=== PATIENT | female | born 1995 | race Caucasian/White ===

== ENCOUNTER 2024-04-25 13:45 | Outpatient (RCR) | payer BC, SELFPAY ==
--- NOTE | 2023-11-30 17:16 | PT.OIE ---
Current Diagnoses Constipation, unspecified (11/30/23) Pain in unspecified knee (11/30/23) Muscle weakness (generalized) (11/30/23) Myalgia, other site (11/30/23) Other female genital prolapse (11/30/23) Visit Care Team Role Provider Type Mckayla San PA-C Family Provider Non-Staff Primary Care Provider Specialty: Medical Address: [address], [facility] [address], [place], [address] Email: BLANQUITA Cabrera Attending Provider Non-Staff Referring Provider Specialty: Nursing Address: [facility], [address], [place], [address] Email: Physical Therapy Initial Evaluation PT-OP-A Visit Information Start: 11/22/23 19:42 Freq: Status: Active Protocol: Document 11/30/23 12:34 LRN (Rec: 11/30/23 16:40 LRN [id number]) Out-Patient Physical Therapy Visit Information Visit Information Visit Type Initial Evaluation Visit Start Time 14:35 Visit Stop Time 15:24 Visit Number 1 Evaluation Information Evaluation Date 11/30/23 Precautions Precautions Neuropathy, depression, Chronic back & neck pain (10 yrs), headaches, PT-OP-B Current Condition Start: 11/22/23 19:42 Freq: Status: Active Protocol: Document 11/30/23 12:34 LRN (Rec: 11/30/23 16:40 LRN [id number]) Current Condition History of Current Condition Onset Date 08/17/23 Current Complaints Pain across abdomen; jnaene knee pain (with max bending) around the joint. History of Current Condition Pt is 15 wks post- C- section , referred for abdominal pain, instability, and janene knee pain. Pt reports abdominal pain is at the C- section scar and above but not as high as the belly button level (3 fingers down). R side of scar and abdomen is more painful, initially it was the L side. Pt is having trouble with functional activities with her children due to the abdominal and janene knee pain. Pt denies urinary symptoms. Has constipation, but has had it for a long time . Taking stool softners and laxitives to have BM 3 days. Before stools every 2-3 days without medication. Developmental History Developmental History 4 pregnancies, last brth C- section but others were vaginal. Mild tear with first of twins. children 4.5 x 2, age 3, and 5 wks. Treatment Goals Patient/Caregiver Goals Pt goal is: Cut down on abodominal pain No abominal pain with kids sitting on lap. Becoming more functional, hug kids w/o pain. Not feeling protective of stomach. Be able to sit on knees to get down on the floor. Personal Factors Other Personal Factors That May Effect Pt has 4 children (4-1/2 twins Therapy/Recovery , 3 yo & 5 wk old), lives in [place]; therefore can make only certain timeframes for appointments. PT-OP-C Subjective Start: 11/22/23 19:42 Freq: Status: Active Protocol: Document 11/30/23 12:34 LRN (Rec: 11/30/23 16:40 LRN [id number]) Patient Questionnaires Lower Extremity Functional Scale LEFS Score 51 LEFS Impairment 20 to 39% Impaired (Score 48- 62) Pelvic Pain and Urgency/Frequency Patient Symptom Scale Pelvic Pain Score 16 OP-PT Pain Assessment Pain Assessment Grid Paper Pain Assessment Grid Completed Yes Location Janene knees Pain Location Details Janene knees Intensity 6 Scale Used Numeric (0 - 10) Description Aching,Sharp Description- Other Sitting on knees or max knee flexion pain only. Frequency Occasional Other Pain Aggravating Factors Max knee flexion or sitting on knees. Lower abdomen Pain Location Details Below belly button across abdomen Intensity 4 Scale Used Numeric (0 - 10) Description Sharp Frequency Frequent Pain Duration several times a day. Fades if not actively doing something. Other Pain Aggravating Factors Children hugging her has dull achy abdominal pain. Other Pain Alleviating Factors Essential oils: lavender, peppermint, doterra. IBP or Tylenol not helpful PT-OP-J Posture/Palpation/Skin Start: 11/22/23 19:42 Freq: Status: Active Protocol: Document 11/30/23 12:34 LRN (Rec: 11/30/23 16:40 LRN [id number]) Posture Evaluation Position Standing Head/C-Spine Posture Forward Head L-Spine Posture Increased Lordosis Pelvis Posture Anteriorly Tilted Palpation Assessment Location Knees Palpation Location Around knees - bilaterally Palpation Details No tenderness to palpation. abdomen Palpation Location Abdominal DR Palpation Details Abdominal contraction not strong enough to be palpable w /o reaching fwd w/arms on head lift. Umbilicus 3 above: closed ( just below Xiphoid Process. Umbilicus 2 above: 2 finger widths (FWs) Umbilicus 1 above: 2 finger widths (FWs) Umbilicus Umbilicus: 1 below: 2 FWs Umbilicus: 2 below: Pt not able to tolerate assessment due to pain Umbilicus: 3 below: Pt not able to tolerate assessment due to pain Umbilicus: 4 below: Just above scar PT-OP-K Range of Motion Start: 11/22/23 19:42 Freq: Status: Active Protocol: Document 11/30/23 12:34 LRN (Rec: 11/30/23 16:40 LRN [id number]) Lumbar Spine Range of Motion Lumbar Spine Active Degrees Testing Position Standing Flexion 58 Extension 5 Rotation Left 20 Rotation Right 20 Lateral Flexion Left 15 Lateral Flexion Right 15 Hip Goniometric Range of Motion Hip Right Passive Testing Position Supine Flexion w/Knee Flexed 115 Internal Rotation 35 External Rotation 55 Left Passive Flexion w/Knee Flexed 120 Internal Rotation 40 External Rotation 60 Knee Goniometric Range of Motion Knee Right Patient Position Supine Flexion Active (degrees) 140 Flexion Passive (degrees) 140 Left Patient Position Supine Flexion Active (degrees) 133 Flexion Passive (degrees) 140 PT-OP-L Special Tests Start: 11/22/23 19:42 Freq: Status: Active Protocol: Document 11/30/23 12:34 LRN (Rec: 11/30/23 16:40 LRN [id number]) Special Tests Knee Special Tests Posterior Draw Test Results - bilaterally Patellar Grind Test Test Results - bilaterally Joe Test Test Results - bilaterally Bounce Home Test Results - bilaterally Alba's Test Results - bilaterally Anterior Draw Test Results - bilaterally PT-OP-M Strength Start: 11/22/23 19:42 Freq: Status: Active Protocol: Document 11/30/23 12:34 LRN (Rec: 11/30/23 16:40 LRN [id number]) Trunk Strength Trunk Manual Muscle Testing Flexion 2+ Poor+ Core Stabilization Held assessment due to onset of abdominal pain with sup<> sit transfers. Hip Strength Hip Manual Muscle Testing Right External Rotation 5 Normal Internal Rotation 5 Normal Left External Rotation 5 Normal Internal Rotation 5 Normal PT-OP-Q Treatments Start: 11/22/23 19:42 Freq: Status: Active Protocol: Document 11/30/23 12:34 LRN (Rec: 11/30/23 16:40 LRN [id number]) Therapeutic Exercises Supine Exercises TA tightening Supine Exercise Name TA tightening Reps/Minutes 5' Comments Much cuing for pt to identify TA tightening at centerline and at ASIS Therapeutic Activity Therapeutic Activity Sup<>sit Name Sup<>Sit transfer Reps/Minutes 3' Comments Verbal education/discusssion in log roll technique for sup< >sit transfer. Manual Therapy Treatment Soft Tissue Mobilization Scar mob Body Location scar mob Mobilization Type Myofascial Release Intensity/Depth Superficial Body Position Supine Comments Tighter on L side. Educated pt in self scar mob of scar. Self-Care/Home Management Treatment Education Patient Education Home Exercise Program Other Education Discussed results of evaluation, goals, and plan of care (POC). Pt agreeable to goals and POC. Discussed use of ice, LE elevation and knee wrap for edema mgmt and pain reduction to janene knees. Activities Self-Care/Home Management Activities Issued & reviewed HEP: TA tightening ex in supine and I/ S pt to do in all positions, especially in slidelie. PT-OP-T Assessment and Plan Start: 11/22/23 19:42 Freq: Status: Active Protocol: Document 11/30/23 12:34 LRN (Rec: 11/30/23 16:40 LRN [id number]) Physical Therapy Assessment Rehab Potential Rehabilitation Potential Excellent Evaluation Complexity Number of Personal Factors/Comorbidities 1-2 Number of Body Systems Impaired 4 or More Clinical Presentation at Evaluation Evolving Impairments Impairments Activity Tolerance,Edema, Functional Activities, Functional Mobility,Pain, Posture,ROM,Soft Tissue Mobility,Strength,Transfers Goals Five Impairment Constipation, BM's every 3-4 days with use of stool softners. Short Term Goal (STG) Pt will be educated in bowel care program and BM massage. STG Duration 1 month-12/28/23 [facility] Goal (LTG) Pt will be able to have BM daily or every other day. LTG Duration 5 months-05/02/24 Four Impairment Lacks normal janene knee flexion range. Impairment Painfree knee AROM flexion: 133 L, 140 R, Knee pain at PROM flex: 140 deg's bilaterally, pt not able to sit on heels when gettin up/ down off floor. Short Term Goal (STG) Pt educated in RICE technique. 11/30/23: Brief discussion on edema management for swelling in knees. STG Duration 2 wks-12/14/23 Shiftman Goal (LTG) Be able to tolerate max knee flex to sit on heels to get down onto the floor. LTG Duration 4 months-04/11/24 Three Impairment Abdominal weakness causing pain with activities Impairment Abdominal pain (5/10) limiting functional ability to take care of kids. Abdominal strength with head lift is 1/5. Short Term Goal (STG) Improve abdominal strength with pt able to perform a TA with a head lift. STG Duration 2 months-01/25/24 Shiftman Goal (LTG) Improve abdominal strength with pt able to be more functional, ex - hug kids w/o pain. LTG Duration 4 months-04/11/24 Two Impairment Abdominal pain (5/10) with pressure against stomach Short Term Goal (STG) Decrease abodominal pain to level no greater than 2.5/10 STG Duration 2 months-01/25/24 Shiftman Goal (LTG) No abdominal pain with kids sitting on lap. LTG Duration 3 months-03/14/24 One Impairment Pt lacks appropriate self care HEP Short Term Goal (STG) Pt education in transfers to protect her Diastasis Rectus ( DR) STG Duration 2 wks-12/14/23 [facility] Goal (LTG) Pt will be independent with a self care HEP of core/hip strengthening, hip and janene knee ROM exercises. 11/30/23: HEP: Sup, Sidelie TA tightening & I/S in standing. Pt educated in log roll transfer OOB. LTG Duration 5 months-05/02/24 progressed 11/30/23 Assessment Summary Assessment Pt is a 27 yo femalek 15 wks post- with abdominal pain from scar and core abdominal weakness. Janene knee knee pain is probably due to swelling at the knee as tests for patellar or internal derangement at the knees is negative. Lig tests are negative although MCL/LCL testing will be performed at the next visit. The pt was not having genital prolapse symptoms; therefore further assessment for prolapse will be at her next visit. The pt will benefit from skilled physical therapy with focus first on her abdominal pain, then on her knee pain, and if pt agreeable PF rehab as needed. Physical Therapy Plan Frequency and Duration Frequency of Treatment 1x/Week Duration of treatment (weeks) 22 Plan of Care Start Date 11/30/23 Plan of Care End Date 05/02/24 Therapeutic Interventions Therapeutic Interventions Balance Training,Gait Training ,Home Exercise Program,Joint Mobilizations,Manual Therapy, Neuromuscular Re-education, Self-Care/Home Management,Soft Tissue Mobilization,Taping, Therapeutic Activities, Therapeutic Exercises Modalities Cold Pack/Ice Massage,Electric Stimulation,Hot Packs, Ultrasound Next Visit Focus/Plan Next Note Type Treatment Note Next Visit Plan Next: Assess MCL/LCL knee ligs, strength of trunk/hip/ knee (if tolerated by abdominal pain), and PF assessed for genital prolapse. Education: RICE technique, DR protection education, Postural training, coordination of proper breaths with ADLs, transfers, body mechanics and exercise. Strengthening: Core/TA post- . Exer: trunk flex (R>L KTC), Hip stretches (R>L IR/ER) & core strengthening (TA/ro
--- NOTE | 2023-11-30 17:16 | PT.OPPOC ---
Physical, Occupational & Speech Therapy At [facility] Current Diagnoses Constipation, unspecified (11/30/23) Pain in unspecified knee (11/30/23) Muscle weakness (generalized) (11/30/23) Myalgia, other site (11/30/23) Other female genital prolapse (11/30/23) Visit Care Team Role Provider Type Mckayla San PA-C Family Provider Non-Staff Primary Care Provider Specialty: Medical Address: [address], [facility] [address], [place], [address] Email: BLANQUITA Cabrera Attending Provider Non-Staff Referring Provider Specialty: Nursing Address: [facility], [facility] [address], [place], [address] Email: Plan Of Care PT-OP-T Assessment and Plan Start: 11/22/23 19:42 Freq: Status: Active Protocol: Document 11/30/23 12:34 LRN (Rec: 11/30/23 16:40 LRN [id number]) Physical Therapy Assessment Rehab Potential Rehabilitation Potential Excellent Evaluation Complexity Number of Personal Factors/Comorbidities 1-2 Number of Body Systems Impaired 4 or More Clinical Presentation at Evaluation Evolving Impairments Impairments Activity Tolerance,Edema, Functional Activities, Functional Mobility,Pain, Posture,ROM,Soft Tissue Mobility,Strength,Transfers Goals Five Impairment Constipation, BM's every 3-4 days with use of stool softners. Short Term Goal (STG) Pt will be educated in bowel care program and BM massage. STG Duration 1 month-12/28/23 Rental Salesperson Goal (LTG) Pt will be able to have BM daily or every other day. LTG Duration 5 months-05/02/24 Four Impairment Lacks normal janene knee flexion range. Impairment Painfree knee AROM flexion: 133 L, 140 R, Knee pain at PROM flex: 140 deg's bilaterally, pt not able to sit on heels when gettin up/ down off floor. Short Term Goal (STG) Pt educated in RICE technique. 11/30/23: Brief discussion on edema management for swelling in knees. STG Duration 2 wks-12/14/23 Rental Salesperson Goal (LTG) Be able to tolerate max knee flex to sit on heels to get down onto the floor. LTG Duration 4 months-04/11/24 Three Impairment Abdominal weakness causing pain with activities Impairment Abdominal pain (5/10) limiting functional ability to take care of kids. Abdominal strength with head lift is 1/5. Short Term Goal (STG) Improve abdominal strength with pt able to perform a TA with a head lift. STG Duration 2 months-01/25/24 [facility] Goal (LTG) Improve abdominal strength with pt able to be more functional, ex - hug kids w/o pain. LTG Duration 4 months-04/11/24 Two Impairment Abdominal pain (5/10) with pressure against stomach Short Term Goal (STG) Decrease abodominal pain to level no greater than 2.5/10 STG Duration 2 months-01/25/24 Rental Salesperson Goal (LTG) No abdominal pain with kids sitting on lap. LTG Duration 3 months-03/14/24 One Impairment Pt lacks appropriate self care HEP Short Term Goal (STG) Pt education in transfers to protect her Diastasis Rectus ( DR) STG Duration 2 wks-12/14/23 Rental Salesperson Goal (LTG) Pt will be independent with a self care HEP of core/hip strengthening, hip and janene knee ROM exercises. 11/30/23: HEP: Sup, Sidelie TA tightening & I/S in standing. Pt educated in log roll transfer OOB. LTG Duration 5 months-05/02/24 progressed 11/30/23 Assessment Summary Assessment Pt is a 27 yo femalek 15 wks post- with abdominal pain from scar and core abdominal weakness. Janene knee knee pain is probably due to swelling at the knee as tests for patellar or internal derangement at the knees is negative. Lig tests are negative although MCL/LCL testing will be performed at the next visit. The pt was not having genital prolapse symptoms; therefore further assessment for prolapse will be at her next visit. The pt will benefit from skilled physical therapy with focus first on her abdominal pain, then on her knee pain, and if pt agreeable PF rehab as needed. Physical Therapy Plan Frequency and Duration Frequency of Treatment 1x/Week Duration of treatment (weeks) 22 Plan of Care Start Date 11/30/23 Plan of Care End Date 05/02/24 Therapeutic Interventions Therapeutic Interventions Balance Training,Gait Training ,Home Exercise Program,Joint Mobilizations,Manual Therapy, Neuromuscular Re-education, Self-Care/Home Management,Soft Tissue Mobilization,Taping, Therapeutic Activities, Therapeutic Exercises Modalities Cold Pack/Ice Massage,Electric Stimulation,Hot Packs, Ultrasound Next Visit Focus/Plan Next Note Type Treatment Note Next Visit Plan Next: Assess MCL/LCL knee ligs, strength of trunk/hip/ knee (if tolerated by abdominal pain), and PF assessed for genital prolapse. Education: RICE technique, DR protection education, Postural training, coordination of proper breaths with ADLs, transfers, body mechanics and exercise. Strengthening: Core/TA post- . Exer: trunk flex (R>L KTC), Hip stretches (R>L IR/ER) & core strengthening (TA/ro Plan of Care Dates Plan of Care Start Date 11/30/23 Plan of Care End Date 05/02/24 Electronically Signed by: Lyndsey Nails, PT 11/30/23 2341 If you are in agreement with this Plan of Care, please return a signed and dated copy. I have reviewed this Plan of Care and certify that the skilled therapy services above are required to meet the patient?s needs. Physician Signature Date Printed Name and Credentials Clinical Instructor Signature Printed Name and Credentials
--- NOTE | 2023-12-07 14:57 | PT-OP ANOTE ---
By phone, pt states she's had a headache today and forgot appt. Rreviewed DNS/CX policy regarding missed charge fee. Pt to call clinic if she wants to dispute. Pt reminded of next appt.
--- NOTE | 2023-12-14 15:35 | PT.OTN ---
Current Diagnoses Constipation, unspecified (12/14/23) Pain in unspecified knee (12/14/23) Muscle weakness (generalized) (12/14/23) Myalgia, other site (12/14/23) Other female genital prolapse (12/14/23) Physical Therapy Treatment Note PT-OP-A Visit Information Start: 11/22/23 19:42 Freq: Status: Active Protocol: Document 12/14/23 14:36 LRN (Rec: 12/14/23 15:33 LRN [id number]) Out-Patient Physical Therapy Visit Information Visit Information Visit Type Treatment Note Visit Start Time 14:36 Visit Stop Time 15:09 Visit Number 2 Evaluation Information Evaluation Date 11/30/23 Precautions Precautions Neuropathy, depression, Chronic back & neck pain (10 yrs), headaches, PT-OP-B Current Condition Start: 11/22/23 19:42 Freq: Status: Active Protocol: Document 11/30/23 12:34 LRN (Rec: 11/30/23 16:40 LRN [id number]) Current Condition History of Current Condition Onset Date 08/17/23 Current Complaints Pain across abdomen; janene knee pain (with max bending) around the joint. History of Current Condition Pt is 15 wks post- C- section , referred for abdominal pain, instability, and janene knee pain. Pt reports abdominal pain is at the C- section scar and above but not as high as the belly button level (3 fingers down). R side of scar and abdomen is more painful, initially it was the L side. Pt is having trouble with functional activities with her children due to the abdominal and janene knee pain. Pt denies urinary symptoms. Has constipation, but has had it for a long time . Taking stool softners and laxitives to have BM 3 days. Before stools every 2-3 days without medication. Developmental History Developmental History 4 pregnancies, last brth C- section but others were vaginal. Mild tear with first of twins. children 4.5 x 2, age 3, and 5 wks. Treatment Goals Patient/Caregiver Goals Pt goal is: Cut down on abodominal pain No abominal pain with kids sitting on lap. Becoming more functional, hug kids w/o pain. Not feeling protective of stomach. Be able to sit on knees to get down on the floor. Personal Factors Other Personal Factors That May Effect Pt has 4 children (4-1/2 twins Therapy/Recovery , 3 yo & 5 wk old), lives in [place]; therefore can make only certain timeframes for appointments. PT-OP-C Subjective Start: 11/22/23 19:42 Freq: Status: Active Protocol: Document 12/14/23 14:36 LRN (Rec: 12/14/23 15:33 LRN [id number]) OP-PT Subjective Patient Comments Patient Comments Knees are doing better, jian can sit down on her knees unless going too quickly. Feels minor improvement with feeling stomach muscles. PT-OP-J Posture/Palpation/Skin Start: 11/22/23 19:42 Freq: Status: Active Protocol: Document 11/30/23 12:34 LRN (Rec: 11/30/23 16:40 LRN [id number]) Posture Evaluation Position Standing Head/C-Spine Posture Forward Head L-Spine Posture Increased Lordosis Pelvis Posture Anteriorly Tilted Palpation Assessment Location Knees Palpation Location Around knees - bilaterally Palpation Details No tenderness to palpation. abdomen Palpation Location Abdominal DR Palpation Details Abdominal contraction not strong enough to be palpable w /o reaching fwd w/arms on head lift. Umbilicus 3 above: closed ( just below Xiphoid Process. Umbilicus 2 above: 2 finger widths (FWs) Umbilicus 1 above: 2 finger widths (FWs) Umbilicus Umbilicus: 1 below: 2 FWs Umbilicus: 2 below: Pt not able to tolerate assessment due to pain Umbilicus: 3 below: Pt not able to tolerate assessment due to pain Umbilicus: 4 below: Just above scar PT-OP-K Range of Motion Start: 11/22/23 19:42 Freq: Status: Active Protocol: Document 11/30/23 12:34 LRN (Rec: 11/30/23 16:40 LRN [id number]) Lumbar Spine Range of Motion Lumbar Spine Active Degrees Testing Position Standing Flexion 58 Extension 5 Rotation Left 20 Rotation Right 20 Lateral Flexion Left 15 Lateral Flexion Right 15 Hip Goniometric Range of Motion Hip Right Passive Testing Position Supine Flexion w/Knee Flexed 115 Internal Rotation 35 External Rotation 55 Left Passive Flexion w/Knee Flexed 120 Internal Rotation 40 External Rotation 60 Knee Goniometric Range of Motion Knee Right Patient Position Supine Flexion Active (degrees) 140 Flexion Passive (degrees) 140 Left Patient Position Supine Flexion Active (degrees) 133 Flexion Passive (degrees) 140 PT-OP-L Special Tests Start: 11/22/23 19:42 Freq: Status: Active Protocol: Document 11/30/23 12:34 LRN (Rec: 11/30/23 16:40 LRN [id number]) Special Tests Knee Special Tests Posterior Draw Test Results - bilaterally Patellar Grind Test Test Results - bilaterally Joe Test Test Results - bilaterally Bounce Home Test Results - bilaterally Alba's Test Results - bilaterally Anterior Draw Test Results - bilaterally PT-OP-M Strength Start: 11/22/23 19:42 Freq: Status: Active Protocol: Document 11/30/23 12:34 LRN (Rec: 11/30/23 16:40 LRN [id number]) Trunk Strength Trunk Manual Muscle Testing Flexion 2+ Poor+ Core Stabilization Held assessment due to onset of abdominal pain with sup<> sit transfers. Hip Strength Hip Manual Muscle Testing Right External Rotation 5 Normal Internal Rotation 5 Normal Left External Rotation 5 Normal Internal Rotation 5 Normal PT-OP-Q Treatments Start: 11/22/23 19:42 Freq: Status: Active Protocol: Document 12/14/23 14:36 LRN (Rec: 12/14/23 15:33 LRN [id number]) Therapeutic Exercises Sidelying Exercises TA tightening Sidelying Exercise Name TA tightening Side bilateral Reps/Minutes 10 SH x 6' Comments Pt fatigued after 4-5 reps. Other Exercises TA w/transfers Other Exercise Name TA tightening with transfers: stand<>sit<>sidelie. Equipment Used Towel for bracing abdomen Reps/Minutes 5' Comments VCs needed to Tighten TA before transfering. Manual Therapy Treatment Soft Tissue Mobilization Back Body Location Lower T/S and L/S paraspinals Mobilization Type Myofascial Release,Strumming Intensity/Depth Moderate to superficial. Body Position Prone Comments Prone on pillow. PT-OP-T Assessment and Plan Start: 11/22/23 19:42 Freq: Status: Active Protocol: Document 12/14/23 14:36 LRN (Rec: 12/14/23 15:33 LRN [id number]) Physical Therapy Assessment Goals Five Impairment Constipation, BM's every 3-4 days with use of stool softners. Short Term Goal (STG) Pt will be educated in bowel care program and BM massage. STG Duration 1 month-12/28/23 Jail Goal (LTG) Pt will be able to have BM daily or every other day. LTG Duration 5 months-05/02/24 Four Impairment Lacks normal janene knee flexion range. Impairment Painfree knee AROM flexion: 133 L, 140 R, Knee pain at PROM flex: 140 deg's bilaterally, pt not able to sit on heels when gettin up/ down off floor. Short Term Goal (STG) Pt educated in RICE technique. 11/30/23: Brief discussion on edema management for swelling in knees. STG Duration 2 wks-12/14/23 As400 Consultant Goal (LTG) Be able to tolerate max knee flex to sit on heels to get down onto the floor. LTG Duration 4 months-04/11/24 Three Impairment Abdominal weakness causing pain with activities Impairment Abdominal pain (5/10) limiting functional ability to take care of kids. Abdominal strength with head lift is 1/5. Short Term Goal (STG) Improve abdominal strength with pt able to perform a TA with a head lift. STG Duration 2 months-01/25/24 As400 Consultant Goal (LTG) Improve abdominal strength with pt able to be more functional, ex - hug kids w/o pain. LTG Duration 4 months-04/11/24 Two Impairment Abdominal pain (5/10) with pressure against stomach Short Term Goal (STG) Decrease abodominal pain to level no greater than 2.5/10 STG Duration 2 months-01/25/24 Jail Goal (LTG) No abdominal pain with kids sitting on lap. LTG Duration 3 months-03/14/24 One Impairment Pt lacks appropriate self care HEP Short Term Goal (STG) Pt education in transfers to protect her Diastasis Rectus ( DR). 12/14/23: Pt educated in use of towel for transfers to protech her DR. STG Duration 2 wks-12/14/23 (12/24/23: MET GOAL) Jail Goal (LTG) Pt will be independent with a self care HEP of core/hip strengthening, hip and janene knee ROM exercises. 11/30/23: HEP: Sup, Sidelie TA tightening & I/S in standing. Pt educated in log roll transfer OOB. LTG Duration 5 months-05/02/24 progressed 11/30/23 Assessment Summary Assessment Pt is a 27 yo female 16 wks post- with abdominal pain from scar and core abdominal weakness. She is very weak and fatigues in abdomen after 4-5 reps; therefore pt did not tolerate a full session of physical therapy. Pt is carrying baby in to clinic in car seat and is having back pain from low back to upperback. She is tender in the L anterior lower abdominal region with sit<> stnad transfers. Physical Therapy Plan Frequency and Duration Frequency of Treatment 1x/Week Duration of treatment (weeks) 22 Plan of Care Start Date 11/30/23 Plan of Care End Date 05/02/24 Next Visit Focus/Plan Next Note Type Treatment Note Next Visit Plan Next: Assess MCL/LCL knee ligs, strength of trunk/hip/ knee (if tolerated by abdominal pain), and PF assessed for genital prolapse. Education: RICE technique, bowel care program & BM massage (STG 5), Postural training, coordination of proper breaths with ADLs, transfers, body mechanics and exercise. Strengthening: Core/TA post- . Exer: trunk flex (R>L KTC), Hip stretches (R>L IR/ER) & core strengthening (TA/roll in /out program)
--- NOTE | 2023-12-21 15:54 | PT.OTN ---
Current Diagnoses Constipation, unspecified (12/21/23) Pain in unspecified knee (12/21/23) Muscle weakness (generalized) (12/21/23) Myalgia, other site (12/21/23) Other female genital prolapse (12/21/23) Physical Therapy Treatment Note PT-OP-A Visit Information Start: 11/22/23 19:42 Freq: Status: Active Protocol: Document 12/21/23 14:35 LRN (Rec: 12/21/23 15:50 LRN [id number]) Out-Patient Physical Therapy Visit Information Visit Information Visit Type Treatment Note Visit Start Time 14:35 Visit Stop Time 15:20 Visit Number 3 Evaluation Information Evaluation Date 11/30/23 Precautions Precautions Neuropathy, depression, Chronic back & neck pain (10 yrs), headaches (pt reports wgt - 160#) PT-OP-B Current Condition Start: 11/22/23 19:42 Freq: Status: Active Protocol: Document 11/30/23 12:34 LRN (Rec: 11/30/23 16:40 LRN [id number]) Current Condition History of Current Condition Onset Date 08/17/23 Current Complaints Pain across abdomen; janene knee pain (with max bending) around the joint. History of Current Condition Pt is 15 wks post- C- section , referred for abdominal pain, instability, and janene knee pain. Pt reports abdominal pain is at the C- section scar and above but not as high as the belly button level (3 fingers down). R side of scar and abdomen is more painful, initially it was the L side. Pt is having trouble with functional activities with her children due to the abdominal and janene knee pain. Pt denies urinary symptoms. Has constipation, but has had it for a long time . Taking stool softners and laxitives to have BM 3 days. Before stools every 2-3 days without medication. Developmental History Developmental History 4 pregnancies, last brth C- section but others were vaginal. Mild tear with first of twins. children 4.5 x 2, age 3, and 5 wks. Treatment Goals Patient/Caregiver Goals Pt goal is: Cut down on abodominal pain No abominal pain with kids sitting on lap. Becoming more functional, hug kids w/o pain. Not feeling protective of stomach. Be able to sit on knees to get down on the floor. Personal Factors Other Personal Factors That May Effect Pt has 4 children (4-1/2 twins Therapy/Recovery , 3 yo & 5 wk old), lives in [place]; therefore can make only certain timeframes for appointments. PT-OP-C Subjective Start: 11/22/23 19:42 Freq: Status: Active Protocol: Document 12/21/23 14:35 LRN (Rec: 12/21/23 15:50 LRN [id number]) OP-PT Subjective Patient Comments Patient Comments Doing PT for back via online ( [employer]). Thinks she can tighten her TA with only discomfort, not painful, bu pain in back after 10 reps due to fatigue. Feels she is 50% able to remember to tighten her TA with activities. Hard time after last visit due to increased back pain and difficult carrying car seat. Pain decreased from 6/10 to 5 /10 after treatment. OP-PT Pain Assessment Pain Assessment Grid Paper Pain Assessment Grid Completed Yes Location Posterior Neck Pain Location Details Posterior neck Intensity 7 Scale Used Numeric (0 - 10) Posterio trunk Pain Location Details posterior thoracic region Intensity 7 Scale Used Numeric (0 - 10) PT-OP-J Posture/Palpation/Skin Start: 11/22/23 19:42 Freq: Status: Active Protocol: Document 11/30/23 12:34 LRN (Rec: 11/30/23 16:40 LRN [id number]) Posture Evaluation Position Standing Head/C-Spine Posture Forward Head L-Spine Posture Increased Lordosis Pelvis Posture Anteriorly Tilted Palpation Assessment Location Knees Palpation Location Around knees - bilaterally Palpation Details No tenderness to palpation. abdomen Palpation Location Abdominal DR Palpation Details Abdominal contraction not strong enough to be palpable w /o reaching fwd w/arms on head lift. Umbilicus 3 above: closed ( just below Xiphoid Process. Umbilicus 2 above: 2 finger widths (FWs) Umbilicus 1 above: 2 finger widths (FWs) Umbilicus Umbilicus: 1 below: 2 FWs Umbilicus: 2 below: Pt not able to tolerate assessment due to pain Umbilicus: 3 below: Pt not able to tolerate assessment due to pain Umbilicus: 4 below: Just above scar PT-OP-K Range of Motion Start: 11/22/23 19:42 Freq: Status: Active Protocol: Document 11/30/23 12:34 LRN (Rec: 11/30/23 16:40 LRN [id number]) Lumbar Spine Range of Motion Lumbar Spine Active Degrees Testing Position Standing Flexion 58 Extension 5 Rotation Left 20 Rotation Right 20 Lateral Flexion Left 15 Lateral Flexion Right 15 Hip Goniometric Range of Motion Hip Right Passive Testing Position Supine Flexion w/Knee Flexed 115 Internal Rotation 35 External Rotation 55 Left Passive Flexion w/Knee Flexed 120 Internal Rotation 40 External Rotation 60 Knee Goniometric Range of Motion Knee Right Patient Position Supine Flexion Active (degrees) 140 Flexion Passive (degrees) 140 Left Patient Position Supine Flexion Active (degrees) 133 Flexion Passive (degrees) 140 PT-OP-L Special Tests Start: 11/22/23 19:42 Freq: Status: Active Protocol: Document 12/21/23 14:35 LRN (Rec: 12/21/23 15:52 LRN [id number]) Special Tests Knee Special Tests Varus- 25 Degrees Test Results negative bilaterally Valgus- 25 Degrees Test Results negative bilaterally PT-OP-M Strength Start: 11/22/23 19:42 Freq: Status: Active Protocol: Document 11/30/23 12:34 LRN (Rec: 11/30/23 16:40 LRN [id number]) Trunk Strength Trunk Manual Muscle Testing Flexion 2+ Poor+ Core Stabilization Held assessment due to onset of abdominal pain with sup<> sit transfers. Hip Strength Hip Manual Muscle Testing Right External Rotation 5 Normal Internal Rotation 5 Normal Left External Rotation 5 Normal Internal Rotation 5 Normal PT-OP-Q Treatments Start: 11/22/23 19:42 Freq: Status: Active Protocol: Document 12/21/23 14:35 LRN (Rec: 12/21/23 15:50 LRN [id number]) Therapeutic Exercises Sidelying Exercises TA tightening Sidelying Exercise Name TA tightening Side bilateral Reps/Minutes 15 SH R side; 10x L side/rest /5x more. Comments LBP at rep tolerance. Other Exercises TA w/transfers Other Exercise Name TA tightening with transfers: stand<>sit<>sidelie. Equipment Used Towel for bracing abdomen Reps/Minutes 5' Comments VCs needed to Tighten TA before transfering. Therapeutic Activity Therapeutic Activity Sidelie<>opp sidelie Name Sidelie<>opp sidelie Reps/Minutes 2' Comments Cuing to tighten TA and breathe through movement. Sup<>sit Name Sit>sup transfer Reps/Minutes 2' Comments Cuing for TA tight and not breath holding. Manual Therapy Treatment Soft Tissue Mobilization Bowel massage Body Location Bowel massage Mobilization Type Other Intensity/Depth Superficial to moderate. Body Position Supine Comments Training for pt to do self massage. Discussion of follow up of BM massage with warm fluid vs warm water. Self-Care/Home Management Treatment Education Patient Education Home Exercise Program Other Education Discussed and educated pt in specifics for completion of in use of Bladder Diary and I/S in tracking for 1 week. Discussed use of 2 different diaries for tracking of bladder for next 7 days. Educated pt in avg fluid intake for hydration (~80 oz max) Activities Self-Care/Home Management Activities Issued & reviewed HEP: Bowel massage and bowel program with recommendations in modifications appropriate for pt. Issued handouts for [place] Stool Chart, and bladder diary . PT-OP-T Assessment and Plan Start: 11/22/23 19:42 Freq: Status: Active Protocol: Document 12/21/23 14:35 LRN (Rec: 12/21/23 15:50 LRN [id number]) Physical Therapy Assessment Goals Five Impairment Constipation, BM's every 3-4 days with use of stool softners. Short Term Goal (STG) Pt will be educated in bowel care program and BM massage. STG Duration (12/21/23: MET GOAL) Sped Teacher Goal (LTG) Pt will be able to have BM daily or every other day. LTG Duration 5 months-05/02/24 Four Impairment Lacks normal janene knee flexion range. Impairment Painfree knee AROM flexion: 133 L, 140 R, Knee pain at PROM flex: 140 deg's bilaterally, pt not able to sit on heels when gettin up/ down off floor. Short Term Goal (STG) Pt educated in RICE technique. 11/30/23: Brief discussion on edema management for swelling in knees. STG Duration 2 wks-12/14/23 Sped Teacher Goal (LTG) Be able to tolerate max knee flex to sit on heels to get down onto the floor. LTG Duration 4 months-04/11/24 Three Impairment Abdominal weakness causing pain with activities Impairment Abdominal pain (5/10) limiting functional ability to take care of kids. Abdominal strength with head lift is 1/5. Short Term Goal (STG) Improve abdominal strength with pt able to perform a TA with a head lift. STG Duration 2 months-01/25/24 Sped Teacher Goal (LTG) Improve abdominal strength with pt able to be more functional, ex - hug kids w/o pain. LTG Duration 4 months-04/11/24 Two Impairment Abdominal pain (5/10) with pressure against stomach Short Term Goal (STG) Decrease abodominal pain to level no greater than 2.5/10 STG Duration 2 months-01/25/24 Sped Teacher Goal (LTG) No abdominal pain with kids sitting on lap. LTG Duration 3 months-03/14/24 One Impairment Pt lacks appropriate self care HEP Short Term Goal (STG) Pt education in transfers to protect her Diastasis Rectus ( DR). 12/14/23: Pt educated in use of towel for transfers to protech her DR. STG Duration 2 wks-12/14/23 (12/24/23: MET GOAL) Sped Teacher Goal (LTG) Pt will be independent with a self care HEP of core/hip strengthening, hip and janene knee ROM exercises. 11/30/23: HEP: Sup, Sidelie TA tightening & I/S in standing. Pt educated in log roll transfer OOB. LTG Duration 5 months-05/02/24 progressed 11/30/23 Assessment Summary Assessment Pt is a 27 yo female 16 wks post- with abdominal pain from scar and core abdominal weakness. Late entry of pt reported pain (on initial evaluation) posterior trunk 6-7/10 and posterior neck 6-7/10. Today, janene knee MCL/LCL ligs are intact. Pt still very weak in abdomen and fatigues quickly in abdominal muscles. She is receptive to information for management of constipation. Physical Therapy Plan Frequency and Duration Frequency of Treatment 1x/Week Duration of treatment (weeks) 22 Plan of Care Start Date 11/30/23 Plan of Care End Date 05/02/24 Next Visit Focus/Plan Next Note Type Treatment Note Next Visit Plan Next: Review DR protection with sheet/towel. Assess strength of trunk/hip/knee (if tolerated by abdominal pain), and PF assessed for genital prolapse. Next: Review bladder diary, assess response to BM massage and program. Education: RICE technique, Modalities for pain management , Postural training, coordination of proper breaths with ADLs, transfers, body mechanics and exercise. Strengthening: Core/TA post- . Exer: trunk flex (R>L KTC), Hip stretches (R>L IR/ER) & core strengthening (TA/roll in /out program)
--- NOTE | 2024-01-07 14:35 | PT.OTN ---
Current Diagnoses Constipation, unspecified (01/07/24) Pain in unspecified knee (01/07/24) Muscle weakness (generalized) (01/07/24) Myalgia, other site (01/07/24) Other female genital prolapse (01/07/24) Physical Therapy Treatment Note PT-OP-A Visit Information Start: 11/22/23 19:42 Freq: Status: Active Protocol: Document 01/07/24 13:45 LRN (Rec: 01/07/24 14:34 LRN [id number]) Out-Patient Physical Therapy Visit Information Visit Information Visit Type Treatment Note Visit Start Time 13:45 Visit Stop Time 14:29 Visit Number 4 Evaluation Information Evaluation Date 11/30/23 Precautions Precautions Neuropathy, depression, Chronic back & neck pain (10 yrs), headaches (pt reports wgt - 160#) PT-OP-B Current Condition Start: 11/22/23 19:42 Freq: Status: Active Protocol: Document 11/30/23 12:34 LRN (Rec: 11/30/23 16:40 LRN [id number]) Current Condition History of Current Condition Onset Date 08/17/23 Current Complaints Pain across abdomen; janene knee pain (with max bending) around the joint. History of Current Condition Pt is 15 wks post- C- section , referred for abdominal pain, instability, and janene knee pain. Pt reports abdominal pain is at the C- section scar and above but not as high as the belly button level (3 fingers down). R side of scar and abdomen is more painful, initially it was the L side. Pt is having trouble with functional activities with her children due to the abdominal and janene knee pain. Pt denies urinary symptoms. Has constipation, but has had it for a long time . Taking stool softners and laxitives to have BM 3 days. Before stools every 2-3 days without medication. Developmental History Developmental History 4 pregnancies, last brth C- section but others were vaginal. Mild tear with first of twins. children 4.5 x 2, age 3, and 5 wks. Treatment Goals Patient/Caregiver Goals Pt goal is: Cut down on abodominal pain No abominal pain with kids sitting on lap. Becoming more functional, hug kids w/o pain. Not feeling protective of stomach. Be able to sit on knees to get down on the floor. Personal Factors Other Personal Factors That May Effect Pt has 4 children (4-1/2 twins Therapy/Recovery , 3 yo & 5 wk old), lives in [place]; therefore can make only certain timeframes for appointments. PT-OP-C Subjective Start: 11/22/23 19:42 Freq: Status: Active Protocol: Document 01/07/24 13:45 LRN (Rec: 01/07/24 14:34 LRN [id number]) OP-PT Subjective Patient Comments Patient Comments No changes, having more intermittent pain along scar, thinks because she has not been protecting her core. States use of towel to protect her DR helps with the pain. Bowel movements daily. PT-OP-J Posture/Palpation/Skin Start: 11/22/23 19:42 Freq: Status: Active Protocol: Document 11/30/23 12:34 LRN (Rec: 11/30/23 16:40 LRN [id number]) Posture Evaluation Position Standing Head/C-Spine Posture Forward Head L-Spine Posture Increased Lordosis Pelvis Posture Anteriorly Tilted Palpation Assessment Location Knees Palpation Location Around knees - bilaterally Palpation Details No tenderness to palpation. abdomen Palpation Location Abdominal DR Palpation Details Abdominal contraction not strong enough to be palpable w /o reaching fwd w/arms on head lift. Umbilicus 3 above: closed ( just below Xiphoid Process. Umbilicus 2 above: 2 finger widths (FWs) Umbilicus 1 above: 2 finger widths (FWs) Umbilicus Umbilicus: 1 below: 2 FWs Umbilicus: 2 below: Pt not able to tolerate assessment due to pain Umbilicus: 3 below: Pt not able to tolerate assessment due to pain Umbilicus: 4 below: Just above scar PT-OP-K Range of Motion Start: 11/22/23 19:42 Freq: Status: Active Protocol: Document 11/30/23 12:34 LRN (Rec: 11/30/23 16:40 LRN [id number]) Lumbar Spine Range of Motion Lumbar Spine Active Degrees Testing Position Standing Flexion 58 Extension 5 Rotation Left 20 Rotation Right 20 Lateral Flexion Left 15 Lateral Flexion Right 15 Hip Goniometric Range of Motion Hip Right Passive Testing Position Supine Flexion w/Knee Flexed 115 Internal Rotation 35 External Rotation 55 Left Passive Flexion w/Knee Flexed 120 Internal Rotation 40 External Rotation 60 Knee Goniometric Range of Motion Knee Right Patient Position Supine Flexion Active (degrees) 140 Flexion Passive (degrees) 140 Left Patient Position Supine Flexion Active (degrees) 133 Flexion Passive (degrees) 140 PT-OP-L Special Tests Start: 11/22/23 19:42 Freq: Status: Active Protocol: Document 12/21/23 14:35 LRN (Rec: 12/21/23 15:52 LRN [id number]) Special Tests Knee Special Tests Varus- 25 Degrees Test Results negative bilaterally Valgus- 25 Degrees Test Results negative bilaterally PT-OP-M Strength Start: 11/22/23 19:42 Freq: Status: Active Protocol: Document 11/30/23 12:34 LRN (Rec: 11/30/23 16:40 LRN [id number]) Trunk Strength Trunk Manual Muscle Testing Flexion 2+ Poor+ Core Stabilization Held assessment due to onset of abdominal pain with sup<> sit transfers. Hip Strength Hip Manual Muscle Testing Right External Rotation 5 Normal Internal Rotation 5 Normal Left External Rotation 5 Normal Internal Rotation 5 Normal PT-OP-Q Treatments Start: 11/22/23 19:42 Freq: Status: Active Protocol: Document 01/07/24 13:45 LRN (Rec: 01/07/24 14:34 LRN [id number]) Therapeutic Exercises Supine Exercises Lateral Hip stretch Supine Exercise Name Lateral Hip stretch, R>L Side right Reps/Minutes 3' Comments Extra time to determine max tolerated hip IR stretch Supine Exercise Name Piriformis: KToppS, R>L Side right Reps/Minutes 3' Comments Extra time to determine max tolerated Fig 4 stretch Supine Exercise Name Fig 4 stretch, R>L Side bilateral Reps/Minutes 6' Comments Extra time to determine max tolerated Sidelying Exercises TA tightening Sidelying Exercise Name TA tightening Side bilateral Reps/Minutes 2 breath, 15x/2. Comments LBP at rep tolerance. Manual Therapy Treatment Taping Abdomen for DR awareness Body Location Abdomen Treatment Focus Facilitate Core stab/DR closure Type of Tape Kinesio Tape Skin Inspection Good Comments I/S pt in safe & proper removal of K-tape in 5 days. scar Body Location Lower abdomen at scar Treatment Focus Improve scar tissue mobility Type of Tape Kinesio Tape Skin Inspection Good Comments Scar sensitive. I/S pt in safe & proper removal of K-tape in 5 days. Self-Care/Home Management Treatment Education Patient Education Home Exercise Program Activities Self-Care/Home Management Activities Issued HEP: Hip ER (Fig4 stretch) and Hip IR ( Piriformis & Lateral hip) stretch. PT-OP-T Assessment and Plan Start: 11/22/23 19:42 Freq: Status: Active Protocol: Document 01/07/24 13:45 LRN (Rec: 01/07/24 14:34 LRN [id number]) Physical Therapy Assessment Goals Five Impairment Constipation, BM's every 3-4 days with use of stool softners. Short Term Goal (STG) Pt will be educated in bowel care program and BM massage. STG Duration (12/21/23: MET GOAL) Retail Property Manager Goal (LTG) Pt will be able to have BM daily or every other day. 01/07/24: Pt reports daily BM's. . LTG Duration 5 months-05/02/24 (01/07/24: MET GOAL) Four Impairment Lacks normal janene knee flexion range. Impairment Painfree knee AROM flexion: 133 L, 140 R, Knee pain at PROM flex: 140 deg's bilaterally, pt not able to sit on heels when gettin up/ down off floor. Short Term Goal (STG) Pt educated in RICE technique. 11/30/23: Brief discussion on edema management for swelling in knees. STG Duration 2 wks-12/14/23 Retail Property Manager Goal (LTG) Be able to tolerate max knee flex to sit on heels to get down onto the floor. LTG Duration 4 months-04/11/24 Three Impairment Abdominal weakness causing pain with activities Impairment Abdominal pain (5/10) limiting functional ability to take care of kids. Abdominal strength with head lift is 1/5. Short Term Goal (STG) Improve abdominal strength with pt able to perform a TA with a head lift. STG Duration 2 months-01/25/24 Snf Goal (LTG) Improve abdominal strength with pt able to be more functional, ex - hug kids w/o pain. LTG Duration 4 months-04/11/24 Two Impairment Abdominal pain (5/10) with pressure against stomach Short Term Goal (STG) Decrease abodominal pain to level no greater than 2.5/10 STG Duration 2 months-01/25/24 Snf Goal (LTG) No abdominal pain with kids sitting on lap. LTG Duration 3 months-03/14/24 One Impairment Pt lacks appropriate self care HEP Short Term Goal (STG) Pt education in transfers to protect her Diastasis Rectus ( DR). 12/14/23: Pt educated in use of towel for transfers to protech her DR. STG Duration 2 wks-12/14/23 (12/24/23: MET GOAL) Retail Property Manager Goal (LTG) Pt will be independent with a self care HEP of core/hip strengthening, hip and janene knee ROM exercises. 11/30/23: HEP: Sup, Sidelie TA tightening & I/S in standing. Pt educated in log roll transfer OOB. LTG Duration 5 months-05/02/24 progressed 11/30/23 Assessment Summary Assessment 27 yo female 16 wks post- with abdominal pain from scar and core abdominal weakness. Today shows good recall of use of towel for DR protection with transfer sit<>sup. Pt did not bring bladder diary due to now having daily BMs w/o doing bowel massage. Tender in the anterior lower abdominal region, L>R. + response to K- tape Physical Therapy Plan Frequency and Duration Frequency of Treatment 1x/Week Duration of treatment (weeks) 22 Plan of Care Start Date 11/30/23 Plan of Care End Date 05/02/24 Next Visit Focus/Plan Next Note Type Treatment Note Next Visit Plan Next: Monitor pt using DR protection with sheet/towel for transfers. Assess strength of trunk/hip/knee (if tolerated by abdominal pain), and PF assessed for genital prolapse. Next: Assess response to K-tape & hip stretches, and repeat if + response. Education: RICE technique, Modalities for pain management , Postural training, coordination of proper breaths with ADLs, transfers, body mechanics and exercise. Strengthening: Core/TA post- . Exer: trunk flex (R>L KTC), & core strengthening (TA/roll in/out program) o
--- NOTE | 2024-01-21 15:46 | PT.OTN ---
Current Diagnoses Constipation, unspecified (01/21/24) Pain in unspecified knee (01/21/24) Muscle weakness (generalized) (01/21/24) Myalgia, other site (01/21/24) Other female genital prolapse (01/21/24) Physical Therapy Treatment Note PT-OP-A Visit Information Start: 11/22/23 19:42 Freq: Status: Active Protocol: Document 01/21/24 12:25 LRN (Rec: 01/21/24 15:45 LRN [id number]) Out-Patient Physical Therapy Visit Information Visit Information Visit Type Treatment Note Visit Start Time 14:40 Visit Stop Time 15:22 Visit Number 5 Evaluation Information Evaluation Date 11/30/23 Precautions Precautions Neuropathy, depression, Chronic back & neck pain (10 yrs), headaches (pt reports wgt - 160#) PT-OP-B Current Condition Start: 11/22/23 19:42 Freq: Status: Active Protocol: Document 11/30/23 12:34 LRN (Rec: 11/30/23 16:40 LRN [id number]) Current Condition History of Current Condition Onset Date 08/17/23 Current Complaints Pain across abdomen; janene knee pain (with max bending) around the joint. History of Current Condition Pt is 15 wks post- C- section , referred for abdominal pain, instability, and janene knee pain. Pt reports abdominal pain is at the C- section scar and above but not as high as the belly button level (3 fingers down). R side of scar and abdomen is more painful, initially it was the L side. Pt is having trouble with functional activities with her children due to the abdominal and janene knee pain. Pt denies urinary symptoms. Has constipation, but has had it for a long time . Taking stool softners and laxitives to have BM 3 days. Before stools every 2-3 days without medication. Developmental History Developmental History 4 pregnancies, last brth C- section but others were vaginal. Mild tear with first of twins. children 4.5 x 2, age 3, and 5 wks. Treatment Goals Patient/Caregiver Goals Pt goal is: Cut down on abodominal pain No abominal pain with kids sitting on lap. Becoming more functional, hug kids w/o pain. Not feeling protective of stomach. Be able to sit on knees to get down on the floor. Personal Factors Other Personal Factors That May Effect Pt has 4 children (4-1/2 twins Therapy/Recovery , 3 yo & 5 wk old), lives in [place]; therefore can make only certain timeframes for appointments. PT-OP-C Subjective Start: 11/22/23 19:42 Freq: Status: Active Protocol: Document 01/21/24 12:25 LRN (Rec: 01/21/24 15:45 LRN [id number]) OP-PT Subjective Patient Comments Patient Comments Family and her had flu for a week. pain is not as frequent after the taping. States the tape on the abdomen was not good, caused increased LBP and was difficulty to remove. PT-OP-J Posture/Palpation/Skin Start: 11/22/23 19:42 Freq: Status: Active Protocol: Document 11/30/23 12:34 LRN (Rec: 11/30/23 16:40 LRN [id number]) Posture Evaluation Position Standing Head/C-Spine Posture Forward Head L-Spine Posture Increased Lordosis Pelvis Posture Anteriorly Tilted Palpation Assessment Location Knees Palpation Location Around knees - bilaterally Palpation Details No tenderness to palpation. abdomen Palpation Location Abdominal DR Palpation Details Abdominal contraction not strong enough to be palpable w /o reaching fwd w/arms on head lift. Umbilicus 3 above: closed ( just below Xiphoid Process. Umbilicus 2 above: 2 finger widths (FWs) Umbilicus 1 above: 2 finger widths (FWs) Umbilicus Umbilicus: 1 below: 2 FWs Umbilicus: 2 below: Pt not able to tolerate assessment due to pain Umbilicus: 3 below: Pt not able to tolerate assessment due to pain Umbilicus: 4 below: Just above scar PT-OP-K Range of Motion Start: 11/22/23 19:42 Freq: Status: Active Protocol: Document 11/30/23 12:34 LRN (Rec: 11/30/23 16:40 LRN [id number]) Lumbar Spine Range of Motion Lumbar Spine Active Degrees Testing Position Standing Flexion 58 Extension 5 Rotation Left 20 Rotation Right 20 Lateral Flexion Left 15 Lateral Flexion Right 15 Hip Goniometric Range of Motion Hip Right Passive Testing Position Supine Flexion w/Knee Flexed 115 Internal Rotation 35 External Rotation 55 Left Passive Flexion w/Knee Flexed 120 Internal Rotation 40 External Rotation 60 Knee Goniometric Range of Motion Knee Right Patient Position Supine Flexion Active (degrees) 140 Flexion Passive (degrees) 140 Left Patient Position Supine Flexion Active (degrees) 133 Flexion Passive (degrees) 140 PT-OP-L Special Tests Start: 11/22/23 19:42 Freq: Status: Active Protocol: Document 12/21/23 14:35 LRN (Rec: 12/21/23 15:52 LRN [id number]) Special Tests Knee Special Tests Varus- 25 Degrees Test Results negative bilaterally Valgus- 25 Degrees Test Results negative bilaterally PT-OP-M Strength Start: 11/22/23 19:42 Freq: Status: Active Protocol: Document 11/30/23 12:34 LRN (Rec: 11/30/23 16:40 LRN [id number]) Trunk Strength Trunk Manual Muscle Testing Flexion 2+ Poor+ Core Stabilization Held assessment due to onset of abdominal pain with sup<> sit transfers. Hip Strength Hip Manual Muscle Testing Right External Rotation 5 Normal Internal Rotation 5 Normal Left External Rotation 5 Normal Internal Rotation 5 Normal PT-OP-Q Treatments Start: 11/22/23 19:42 Freq: Status: Active Protocol: Document 01/21/24 12:25 LRN (Rec: 01/21/24 15:45 LRN [id number]) Therapeutic Exercises Supine Exercises TA w/LE roll in/outs Supine Exercise Name TA w/LE roll in-outs Reps/Minutes 3' TA w/Diaphragmatic Breathing (DB) Supine Exercise Name TA tightening with Exhale, holding through inhale Reps/Minutes 3' Comments v cuing to coordinate TA tightening w/breath Diaphragmatic breathing Supine Exercise Name Deep Breathing. Reps/Minutes 3' Comments Cuing for hand placement to identify movement of abdomen. Lateral Hip stretch Supine Exercise Name Lateral Hip stretch, R>L Side right Reps/Minutes 3' Comments Extra time to determine max tolerated hip IR stretch Supine Exercise Name Piriformis: KToppS, R>L Side right Reps/Minutes 3' Comments Extra time to determine max tolerated Fig 4 stretch Supine Exercise Name Fig 4 stretch, R>L Side bilateral Reps/Minutes 6' Comments Extra time to determine max tolerated Sidelying Exercises TA tightening Sidelying Exercise Name TA tightening Side bilateral Reps/Minutes 2 breath, 15x/2. Comments LBP at rep tolerance. Manual Therapy Treatment Soft Tissue Mobilization Scar mob Body Location scar mob Mobilization Type Myofascial Release Intensity/Depth Superficial Body Position Supine Comments Tighter on L side. Educated pt in self scar mob of scar. Taping scar Body Location Lower abdomen at scar Treatment Focus Improve scar tissue mobility Type of Tape Kinesio Tape Skin Inspection Good Comments Scar sensitive. I/S pt in safe & proper removal of K-tape in 5 days. Neuro Re-Education Treatment Coordination Activities Transfers w/TA/Breath/PF Details Transfers coordinating TA tightening, exhale & PF contraction. Reps/Duration Transfers sup<>sit<>stand x 3 Comments Pt needed v.cuing for breathwork and initial cuing for TA/PF tightening. Self-Care/Home Management Treatment Education Patient Education Home Exercise Program,Pain Management,Posture Other Education I/S pt to do hip ex's bilateral. Educated and discussed pt in proper sit/stand posture. Educated and discussed use of cryotherapy (RICE) for self care pain management. Activities Self-Care/Home Management Activities Handouts issued for proper sitting and standing posture. Handout issued for RICE self care pain management. Handout issued for breathwork with transfers. HEP: TA/LE roll in-out ex/PF PT-OP-T Assessment and Plan Start: 11/22/23 19:42 Freq: Status: Active Protocol: Document 01/21/24 12:25 LRN (Rec: 01/21/24 15:45 LRN [id number]) Physical Therapy Assessment Goals Five Impairment Constipation, BM's every 3-4 days with use of stool softners. Short Term Goal (STG) Pt will be educated in bowel care program and BM massage. STG Duration (12/21/23: MET GOAL) Long-Term Goal (LTG) Pt will be able to have BM daily or every other day. 01/07/24: Pt reports daily BM's. LTG Duration 5 months-05/02/24 (01/07/24: MET GOAL) Four Impairment Lacks normal janene knee flexion range. Impairment Painfree knee AROM flexion: 133 L, 140 R, Knee pain at PROM flex: 140 deg's bilaterally, pt not able to sit on heels when gettin up/ down off floor. Short Term Goal (STG) Pt educated in RICE technique. 11/30/23: Brief discussion on edema management for swelling in knees. 01/21/24: Educated pt in use of RICE technique for self care pain management. STG Duration 2 wks-12/14/23 (01/21/24: MET GOAL) Long-Term Goal (LTG) Be able to tolerate max knee flex to sit on heels to get down onto the floor. LTG Duration 4 months-04/11/24 Three Impairment Abdominal weakness causing pain with activities Impairment Abdominal pain (5/10) limiting functional ability to take care of kids. Abdominal strength with head lift is 1/5. Short Term Goal (STG) Improve abdominal strength with pt able to perform a TA with a head lift. STG Duration 2 months-01/25/24 Long-Term Goal (LTG) Improve abdominal strength with pt able to be more functional, ex - hug kids w/o pain. LTG Duration 4 months-04/11/24 Two Impairment Abdominal pain (5/10) with pressure against stomach Short Term Goal (STG) Decrease abodominal pain to level no greater than 2.5/10 STG Duration 2 months-01/25/24 Metal Bonding Helper Goal (LTG) No abdominal pain with kids sitting on lap. LTG Duration 3 months-03/14/24 One Impairment Pt lacks appropriate self care HEP Short Term Goal (STG) Pt education in transfers to protect her Diastasis Rectus ( DR). 12/14/23: Pt educated in use of towel for transfers to protech her DR. STG Duration 2 wks-12/14/23 (12/24/23: MET GOAL) Metal Bonding Helper Goal (LTG) Pt will be independent with a self care HEP of core/hip strengthening, hip and janene knee ROM exercises. 11/30/23: HEP: Sup, Sidelie TA tightening & I/S in standing. Pt educated in log roll transfer OOB. 01/21/24: HEP: Diaphragmatic Breathing (DB), TA/DB, TA/ Breath/LE roll in-out. LTG Duration 5 months-05/02/24 progressed 01/21/24 Assessment Summary Assessment 27 yo female 16 wks post- with abdominal pain from scar and core abdominal weakness. K-tape good for C-scar only, due to increase in LBP and difficulty with removing tape with DR dobbs. TA strength improving, pt tols 15x 2 reps of TA 10SH. Pt needs cuing for transfers to coordinate breath; further review needed. Weak core/PF slowly improving. Physical Therapy Plan Frequency and Duration Frequency of Treatment 1x/Week Duration of treatment (weeks) 22 Plan of Care Start Date 11/30/23 Plan of Care End Date 05/02/24 Next Visit Focus/Plan Next Note Type Treatment Note Next Visit Plan Next: Monitor pt using DR protection with sheet/towel for transfers. Assess strength of trunk/hip/knee (if tolerated by abdominal pain), and PF assessed for genital prolapse. Next: Education: coordination of proper breaths with ADLs, body mechanics and exercise. Strengthening: Core/TA post- . Exer: trunk flex (R>L KTC), & core strengthening (progress TA/roll in/out program).
--- NOTE | 2024-01-28 15:33 | PT.OTN ---
Current Diagnoses Constipation, unspecified (01/28/24) Pain in unspecified knee (01/28/24) Muscle weakness (generalized) (01/28/24) Myalgia, other site (01/28/24) Other female genital prolapse (01/28/24) Physical Therapy Treatment Note PT-OP-A Visit Information Start: 11/22/23 19:42 Freq: Status: Active Protocol: Document 01/28/24 13:00 LRN (Rec: 01/28/24 15:30 LRN [id number]) Out-Patient Physical Therapy Visit Information Visit Information Visit Type Treatment Note Visit Start Time 14:30 Visit Stop Time 15:18 Visit Number 6 Evaluation Information Evaluation Date 11/30/23 Precautions Precautions Neuropathy, depression, Chronic back & neck pain (10 yrs), headaches (pt reports wgt - 160#) PT-OP-B Current Condition Start: 11/22/23 19:42 Freq: Status: Active Protocol: Document 11/30/23 12:34 LRN (Rec: 11/30/23 16:40 LRN [id number]) Current Condition History of Current Condition Onset Date 08/17/23 Current Complaints Pain across abdomen; janene knee pain (with max bending) around the joint. History of Current Condition Pt is 15 wks post- C- section , referred for abdominal pain, instability, and janene knee pain. Pt reports abdominal pain is at the C- section scar and above but not as high as the belly button level (3 fingers down). R side of scar and abdomen is more painful, initially it was the L side. Pt is having trouble with functional activities with her children due to the abdominal and janene knee pain. Pt denies urinary symptoms. Has constipation, but has had it for a long time . Taking stool softners and laxitives to have BM 3 days. Before stools every 2-3 days without medication. Developmental History Developmental History 4 pregnancies, last brth C- section but others were vaginal. Mild tear with first of twins. children 4.5 x 2, age 3, and 5 wks. Treatment Goals Patient/Caregiver Goals Pt goal is: Cut down on abodominal pain No abominal pain with kids sitting on lap. Becoming more functional, hug kids w/o pain. Not feeling protective of stomach. Be able to sit on knees to get down on the floor. Personal Factors Other Personal Factors That May Effect Pt has 4 children (4-1/2 twins Therapy/Recovery , 3 yo & 5 wk old), lives in [place]; therefore can make only certain timeframes for appointments. PT-OP-C Subjective Start: 11/22/23 19:42 Freq: Status: Active Protocol: Document 01/28/24 13:00 LRN (Rec: 01/28/24 15:30 LRN [id number]) OP-PT Subjective Patient Comments Patient Comments Feeling descent. Tape didn't stick and didn't work as well. ABdominal pain is 50% better . Doesn't hurt to the touch. When toddler leans against abdoment too hard, abdominal pain is still a problem. PT-OP-J Posture/Palpation/Skin Start: 11/22/23 19:42 Freq: Status: Active Protocol: Document 11/30/23 12:34 LRN (Rec: 11/30/23 16:40 LRN [id number]) Posture Evaluation Position Standing Head/C-Spine Posture Forward Head L-Spine Posture Increased Lordosis Pelvis Posture Anteriorly Tilted Palpation Assessment Location Knees Palpation Location Around knees - bilaterally Palpation Details No tenderness to palpation. abdomen Palpation Location Abdominal DR Palpation Details Abdominal contraction not strong enough to be palpable w /o reaching fwd w/arms on head lift. Umbilicus 3 above: closed ( just below Xiphoid Process. Umbilicus 2 above: 2 finger widths (FWs) Umbilicus 1 above: 2 finger widths (FWs) Umbilicus Umbilicus: 1 below: 2 FWs Umbilicus: 2 below: Pt not able to tolerate assessment due to pain Umbilicus: 3 below: Pt not able to tolerate assessment due to pain Umbilicus: 4 below: Just above scar PT-OP-K Range of Motion Start: 11/22/23 19:42 Freq: Status: Active Protocol: Document 01/28/24 13:00 LRN (Rec: 01/28/24 15:30 LRN [id number]) Hip Goniometric Range of Motion Hip Right Passive Testing Position Supine Flexion w/Knee Flexed 115 Internal Rotation 40 External Rotation 60 Left Passive Testing Position Supine Flexion w/Knee Flexed 120 Internal Rotation 40 External Rotation 60 PT-OP-L Special Tests Start: 11/22/23 19:42 Freq: Status: Active Protocol: Document 12/21/23 14:35 LRN (Rec: 12/21/23 15:52 LRN [id number]) Special Tests Knee Special Tests Varus- 25 Degrees Test Results negative bilaterally Valgus- 25 Degrees Test Results negative bilaterally PT-OP-M Strength Start: 11/22/23 19:42 Freq: Status: Active Protocol: Document 01/28/24 13:00 LRN (Rec: 01/28/24 15:30 LRN [id number]) Trunk Strength Trunk Manual Muscle Testing Core Stabilization Generally 4/5, except rotation is 3+/5 with loss PT-OP-Q Treatments Start: 11/22/23 19:42 Freq: Status: Active Protocol: Document 01/28/24 13:00 LRN (Rec: 01/28/24 15:30 LRN [id number]) Therapeutic Exercises Supine Exercises TA/Heel slide Supine Exercise Name TA/Heel slide Side bilateral Reps/Minutes 5x each Comments Cued to not flatten back and to breathe. TA/LE roll in-outs/TB/Pillow Supine Exercise Name TA/breath/LE roll in-outs/TB/ Pillow; TA tight/LE roll in- out/TB/Pillow Reps/Minutes 10x, TA hold x 10 Lateral Hip stretch Supine Exercise Name Lateral Hip stretch, R>L Side right Reps/Minutes 3' Comments Extra time to determine max tolerated hip IR stretch Supine Exercise Name Piriformis: Knee to opp Shdr, R>L Side right Reps/Minutes 3' Comments Extra time to determine max tolerated Fig 4 stretch Supine Exercise Name Fig 4 stretch, R>L Side left Reps/Minutes 6' Comments Extra time to determine max tolerated Sidelying Exercises TA/Clamshell Sidelying Exercise Name TA/Clamshell Side bilateral Reps/Minutes 10x each Comments Extra time taken to find max tolerated hip movement with core stability. Manual Therapy Treatment Soft Tissue Mobilization Abdomen Body Location Area of Urachus/suprapubic region Mobilization Type Sustained Pressure Intensity/Depth Moderate Body Position Hooklying Scar mob Body Location scar mob Mobilization Type Myofascial Release Intensity/Depth Superficial Body Position Supine Comments Tighter on L side. Educated pt in self scar mob of scar. Self-Care/Home Management Treatment Education Patient Education Home Exercise Program Activities Self-Care/Home Management Activities Added to HEP: Verbal I/S for TA/Heel slides. PT-OP-T Assessment and Plan Start: 11/22/23 19:42 Freq: Status: Active Protocol: Document 01/28/24 13:00 LRN (Rec: 01/28/24 15:30 LRN [id number]) Physical Therapy Assessment Goals Five Impairment Constipation, BM's every 3-4 days with use of stool softners. Short Term Goal (STG) Pt will be educated in bowel care program and BM massage. STG Duration (12/21/23: MET GOAL) Tennis Instructor Goal (LTG) Pt will be able to have BM daily or every other day. 01/07/24: Pt reports daily BM's. LTG Duration 5 months-05/02/24 (01/07/24: MET GOAL) Four Impairment Lacks normal janene knee flexion range. Impairment Painfree knee AROM flexion: 133 L, 140 R, Knee pain at PROM flex: 140 deg's bilaterally, pt not able to sit on heels when gettin up/ down off floor. Short Term Goal (STG) Pt educated in RICE technique. 11/30/23: Brief discussion on edema management for swelling in knees. 01/21/24: Educated pt in use of RICE technique for self care pain management. STG Duration 2 wks-12/14/23 (01/21/24: MET GOAL) Nursing Home Goal (LTG) Be able to tolerate max knee flex to sit on heels to get down onto the floor. 01/28/24: Able to sit all the way down on her knees. LTG Duration 4 months-04/11/24 (01/28/24: MET GOAL) Three Impairment Abdominal weakness causing pain with activities Impairment Abdominal pain (5/10) limiting functional ability to take care of kids. Abdominal strength with head lift is 1/5. Short Term Goal (STG) Improve abdominal strength with pt able to perform a TA with a head lift. 01/28/24: TA edges felt only with arms reaching with head lift, not with head lift alone . STG Duration 2 months-01/25/24 Tennis Instructor Goal (LTG) Improve abdominal strength with pt able to be more functional, ex - hug kids w/o pain. LTG Duration 4 months-04/11/24 Two Impairment Abdominal pain (5/10) with pressure against stomach Short Term Goal (STG) Decrease abodominal pain to level no greater than 2.5/10. 01/28/24: Pt reports pain reduction of 50%. STG Duration 2 months-01/25/24 (o01/28/24: MET GOAL) Nursing Home Goal (LTG) No abdominal pain with kids sitting on lap. 01/28/24: Kids sitting on lap, if they lean against abdomen too hard, abdominal pain. LTG Duration 3 months-03/14/24 progressed 01/28/24 One Impairment Pt lacks appropriate self care HEP Short Term Goal (STG) Pt education in transfers to protect her Diastasis Rectus ( DR). 12/14/23: Pt educated in use of towel for transfers to protech her DR. STG Duration 2 wks-12/14/23 (12/24/23: MET GOAL) Tennis Instructor Goal (LTG) Pt will be independent with a self care HEP of core/hip strengthening, hip and janene knee ROM exercises. 11/30/23: HEP: Sup, Sidelie TA tightening & I/S in standing. Pt educated in log roll transfer OOB. 01/21/24: HEP: Diaphragmatic Breathing (DB), TA/DB, TA/ Breath/LE roll in-out. 01/28/24: Added to HEP: Verbal I/S for TA/Heel slides. LTG Duration 5 months-05/02/24 progressed 01/28/24 Assessment Summary Assessment 27 yo female 16 wks post- with abdominal pain from scar and core abdominal weakness. Today, much greater tolerance to pressure/palpation of abdomen with scar tissue mob. DR closing except 1 above/below umbilcus. R hip ER is slightly decreased and L hip IR is now the tighter side, but if stretch janene with IR. the ROM will probably even out . ER might need to be stretched nore on R to improve symmetry. Physical Therapy Plan Frequency and Duration Frequency of Treatment 1x/Week Duration of treatment (weeks) 22 Plan of Care Start Date 11/30/23 Plan of Care End Date 05/02/24 Next Visit Focus/Plan Next Note Type Treatment Note Next Visit Plan Next: Monitor if pt using DR protection technique for transfers. Assess strength of knee, and PF assessment for genital prolapse. Education: coordination of proper breaths with ADLs, body mechanics and exercise. Strengthening: Core/TA post- . Exer: trunk flex (R>L KTC), & core strengthening (progress TA/roll in/out program).
--- NOTE | 2024-01-28 15:38 | PT.OTN ---
Current Diagnoses Constipation, unspecified (01/28/24) Pain in unspecified knee (01/28/24) Muscle weakness (generalized) (01/28/24) Myalgia, other site (01/28/24) Other female genital prolapse (01/28/24) Physical Therapy Treatment Note PT-OP-A Visit Information Start: 11/22/23 19:42 Freq: Status: Active Protocol: Document 01/28/24 14:30 LRN (Rec: 01/28/24 15:30 LRN [id number]) Out-Patient Physical Therapy Visit Information Visit Information Visit Type Treatment Note Visit Start Time 14:30 Visit Stop Time 15:18 Visit Number 6 Evaluation Information Evaluation Date 11/30/23 Precautions Precautions Neuropathy, depression, Chronic back & neck pain (10 yrs), headaches (pt reports wgt - 160#) PT-OP-B Current Condition Start: 11/22/23 19:42 Freq: Status: Active Protocol: Document 11/30/23 12:34 LRN (Rec: 11/30/23 16:40 LRN [id number]) Current Condition History of Current Condition Onset Date 08/17/23 Current Complaints Pain across abdomen; janene knee pain (with max bending) around the joint. History of Current Condition Pt is 15 wks post- C- section , referred for abdominal pain, instability, and janene knee pain. Pt reports abdominal pain is at the C- section scar and above but not as high as the belly button level (3 fingers down). R side of scar and abdomen is more painful, initially it was the L side. Pt is having trouble with functional activities with her children due to the abdominal and janene knee pain. Pt denies urinary symptoms. Has constipation, but has had it for a long time . Taking stool softners and laxitives to have BM 3 days. Before stools every 2-3 days without medication. Developmental History Developmental History 4 pregnancies, last brth C- section but others were vaginal. Mild tear with first of twins. children 4.5 x 2, age 3, and 5 wks. Treatment Goals Patient/Caregiver Goals Pt goal is: Cut down on abodominal pain No abominal pain with kids sitting on lap. Becoming more functional, hug kids w/o pain. Not feeling protective of stomach. Be able to sit on knees to get down on the floor. Personal Factors Other Personal Factors That May Effect Pt has 4 children (4-1/2 twins Therapy/Recovery , 3 yo & 5 wk old), lives in [place]; therefore can make only certain timeframes for appointments. PT-OP-C Subjective Start: 11/22/23 19:42 Freq: Status: Active Protocol: Document 01/28/24 14:30 LRN (Rec: 01/28/24 15:30 LRN [id number]) OP-PT Subjective Patient Comments Patient Comments Feeling descent. Tape didn't stick and didn't work as well. ABdominal pain is 50% better . Doesn't hurt to the touch. When toddler leans against abdoment too hard, abdominal pain is still a problem. PT-OP-J Posture/Palpation/Skin Start: 11/22/23 19:42 Freq: Status: Active Protocol: Document 01/28/24 15:35 LRN (Rec: 01/28/24 15:38 LRN [id number]) Palpation Assessment Location abdomen Palpation Location Abdomen Palpation Details Abdominal contraction not strong enough to be palpable w /o reaching fwd w/arms on head lift. Umbilicus 3 above: closed ( just below Xiphoid Process. Umbilicus 2 above: 1.5 very very shallow Umbilicus 1 above: 2.0 finger widths (FWs) Umbilicus Umbilicus: 1 below: 2.0 FWs Umbilicus: 2 below: 1.5 FWs Umbilicus: 3 below: Closed, tender Umbilicus: 4 below: Closed, tender PT-OP-K Range of Motion Start: 11/22/23 19:42 Freq: Status: Active Protocol: Document 01/28/24 14:30 LRN (Rec: 01/28/24 15:30 LRN [id number]) Hip Goniometric Range of Motion Hip Right Passive Testing Position Supine Flexion w/Knee Flexed 115 Internal Rotation 40 External Rotation 60 Left Passive Testing Position Supine Flexion w/Knee Flexed 120 Internal Rotation 40 External Rotation 60 PT-OP-L Special Tests Start: 11/22/23 19:42 Freq: Status: Active Protocol: Document 12/21/23 14:35 LRN (Rec: 12/21/23 15:52 LRN [id number]) Special Tests Knee Special Tests Varus- 25 Degrees Test Results negative bilaterally Valgus- 25 Degrees Test Results negative bilaterally PT-OP-M Strength Start: 11/22/23 19:42 Freq: Status: Active Protocol: Document 01/28/24 14:30 LRN (Rec: 01/28/24 15:30 LRN [id number]) Trunk Strength Trunk Manual Muscle Testing Core Stabilization Generally 4/5, except rotation is 3+/5 with loss PT-OP-Q Treatments Start: 11/22/23 19:42 Freq: Status: Active Protocol: Document 01/28/24 14:30 LRN (Rec: 01/28/24 15:30 LRN [id number]) Therapeutic Exercises Supine Exercises TA/Heel slide Supine Exercise Name TA/Heel slide Side bilateral Reps/Minutes 5x each Comments Cued to not flatten back and to breathe. TA/LE roll in-outs/TB/Pillow Supine Exercise Name TA/breath/LE roll in-outs/TB/ Pillow; TA tight/LE roll in- out/TB/Pillow Reps/Minutes 10x, TA hold x 10 Lateral Hip stretch Supine Exercise Name Lateral Hip stretch, R>L Side right Reps/Minutes 3' Comments Extra time to determine max tolerated hip IR stretch Supine Exercise Name Piriformis: Knee to opp Shdr, R>L Side right Reps/Minutes 3' Comments Extra time to determine max tolerated Fig 4 stretch Supine Exercise Name Fig 4 stretch, R>L Side left Reps/Minutes 6' Comments Extra time to determine max tolerated Sidelying Exercises TA/Clamshell Sidelying Exercise Name TA/Clamshell Side bilateral Reps/Minutes 10x each Comments Extra time taken to find max tolerated hip movement with core stability. Manual Therapy Treatment Soft Tissue Mobilization Abdomen Body Location Area of Urachus/suprapubic region Mobilization Type Sustained Pressure Intensity/Depth Moderate Body Position Hooklying Scar mob Body Location scar mob Mobilization Type Myofascial Release Intensity/Depth Superficial Body Position Supine Comments Tighter on L side. Educated pt in self scar mob of scar. Self-Care/Home Management Treatment Education Patient Education Home Exercise Program Activities Self-Care/Home Management Activities Added to HEP: Verbal I/S for TA/Heel slides. PT-OP-T Assessment and Plan Start: 11/22/23 19:42 Freq: Status: Active Protocol: Document 01/28/24 14:30 LRN (Rec: 01/28/24 15:30 LRN [id number]) Physical Therapy Assessment Goals Five Impairment Constipation, BM's every 3-4 days with use of stool softners. Short Term Goal (STG) Pt will be educated in bowel care program and BM massage. STG Duration (12/21/23: MET GOAL) Alf Goal (LTG) Pt will be able to have BM daily or every other day. 01/07/24: Pt reports daily BM's. LTG Duration 5 months-05/02/24 (01/07/24: MET GOAL) Four Impairment Lacks normal janene knee flexion range. Impairment Painfree knee AROM flexion: 133 L, 140 R, Knee pain at PROM flex: 140 deg's bilaterally, pt not able to sit on heels when gettin up/ down off floor. Short Term Goal (STG) Pt educated in RICE technique. 11/30/23: Brief discussion on edema management for swelling in knees. 01/21/24: Educated pt in use of RICE technique for self care pain management. STG Duration 2 wks-12/14/23 (01/21/24: MET GOAL) Atmospheric Scientist Goal (LTG) Be able to tolerate max knee flex to sit on heels to get down onto the floor. 01/28/24: Able to sit all the way down on her knees. LTG Duration 4 months-04/11/24 (01/28/24: MET GOAL) Three Impairment Abdominal weakness causing pain with activities Impairment Abdominal pain (5/10) limiting functional ability to take care of kids. Abdominal strength with head lift is 1/5. Short Term Goal (STG) Improve abdominal strength with pt able to perform a TA with a head lift. 01/28/24: TA edges felt only with arms reaching with head lift, not with head lift alone . STG Duration 2 months-01/25/24 Atmospheric Scientist Goal (LTG) Improve abdominal strength with pt able to be more functional, ex - hug kids w/o pain. LTG Duration 4 months-04/11/24 Two Impairment Abdominal pain (5/10) with pressure against stomach Short Term Goal (STG) Decrease abodominal pain to level no greater than 2.5/10. 01/28/24: Pt reports pain reduction of 50%. STG Duration 2 months-01/25/24 (o01/28/24: MET GOAL) Alf Goal (LTG) No abdominal pain with kids sitting on lap. 01/28/24: Kids sitting on lap, if they lean against abdomen too hard, abdominal pain. LTG Duration 3 months-03/14/24 progressed 01/28/24 One Impairment Pt lacks appropriate self care HEP Short Term Goal (STG) Pt education in transfers to protect her Diastasis Rectus ( DR). 12/14/23: Pt educated in use of towel for transfers to protech her DR. STG Duration 2 wks-12/14/23 (12/24/23: MET GOAL) Alf Goal (LTG) Pt will be independent with a self care HEP of core/hip strengthening, hip and janene knee ROM exercises. 11/30/23: HEP: Sup, Sidelie TA tightening & I/S in standing. Pt educated in log roll transfer OOB. 01/21/24: HEP: Diaphragmatic Breathing (DB), TA/DB, TA/ Breath/LE roll in-out. 01/28/24: Added to HEP: Verbal I/S for TA/Heel slides. LTG Duration 5 months-05/02/24 progressed 01/28/24 Assessment Summary Assessment 27 yo female 16 wks post- with abdominal pain from scar and core abdominal weakness. Today, much greater tolerance to pressure/palpation of abdomen with scar tissue mob. DR closing except 1 above/below umbilcus. R hip ER is slightly decreased and L hip IR is now the tighter side, but if stretch janene with IR. the ROM will probably even out . ER might need to be stretched nore on R to improve symmetry. Physical Therapy Plan Frequency and Duration Frequency of Treatment 1x/Week Duration of treatment (weeks) 22 Plan of Care Start Date 11/30/23 Plan of Care End Date 05/02/24 Next Visit Focus/Plan Next Note Type Treatment Note Next Visit Plan Next: Monitor if pt using DR protection technique for transfers. Assess strength of knee, and PF assessment for genital prolapse. Education: coordination of proper breaths with ADLs, body mechanics and exercise. Strengthening: Core/TA post- . Exer: trunk flex (R>L KTC), & core strengthening (progress TA/roll in/out program).
--- NOTE | 2024-02-28 08:54 | PT-OP ANOTE ---
Per phone conversation, pt reports her first 2 cancelations were due to sick children. The last 2 cx's were because of PT cancel of appt and spouse left town and she had no teacher early childhood development. Pt states she would like to continue and will give reasons next time. Pt reminded of her next visit.
--- NOTE | 2024-03-06 14:26 | PT-OP ANOTE ---
Per phone conversation pt was informed of possible discharge due to missing over 1/2 of her scheduled appointments and recommending contacting PT director (PT dept number given) for questions or concerns. Pt is aware of her appointment tomorrow and plans on attending.
--- NOTE | 2024-03-07 15:22 | PT.OTN ---
Current Diagnoses Constipation, unspecified (03/07/24) Pain in unspecified knee (03/07/24) Muscle weakness (generalized) (03/07/24) Myalgia, other site (03/07/24) Other female genital prolapse (03/07/24) Physical Therapy Treatment Note PT-OP-A Visit Information Start: 11/22/23 19:42 Freq: Status: Active Protocol: Document 03/07/24 14:40 LRN (Rec: 03/07/24 15:03 LRN [id number]) Out-Patient Physical Therapy Visit Information Visit Information Visit Type Treatment Note Visit Start Time 14:41 Visit Stop Time 14:59 Visit Number 7 Evaluation Information Evaluation Date 11/30/23 Precautions Precautions Neuropathy, depression, Chronic back & neck pain (10 yrs), headaches (pt reports wgt - 160#) PT-OP-B Current Condition Start: 11/22/23 19:42 Freq: Status: Active Protocol: Document 11/30/23 12:34 LRN (Rec: 11/30/23 16:40 LRN [id number]) Current Condition History of Current Condition Onset Date 08/17/23 Current Complaints Pain across abdomen; janene knee pain (with max bending) around the joint. History of Current Condition Pt is 15 wks post- C- section , referred for abdominal pain, instability, and janene knee pain. Pt reports abdominal pain is at the C- section scar and above but not as high as the belly button level (3 fingers down). R side of scar and abdomen is more painful, initially it was the L side. Pt is having trouble with functional activities with her children due to the abdominal and janene knee pain. Pt denies urinary symptoms. Has constipation, but has had it for a long time . Taking stool softners and laxitives to have BM 3 days. Before stools every 2-3 days without medication. Developmental History Developmental History 4 pregnancies, last brth C- section but others were vaginal. Mild tear with first of twins. children 4.5 x 2, age 3, and 5 wks. Treatment Goals Patient/Caregiver Goals Pt goal is: Cut down on abodominal pain No abominal pain with kids sitting on lap. Becoming more functional, hug kids w/o pain. Not feeling protective of stomach. Be able to sit on knees to get down on the floor. Personal Factors Other Personal Factors That May Effect Pt has 4 children (4-1/2 twins Therapy/Recovery , 3 yo & 5 wk old), lives in [place]; therefore can make only certain timeframes for appointments. PT-OP-C Subjective Start: 11/22/23 19:42 Freq: Status: Active Protocol: Document 03/07/24 14:40 LRN (Rec: 03/07/24 15:03 LRN [id number]) OP-PT Subjective Patient Comments Patient Comments Has to leave by 3p due to another appointment. Feels sharp pains have returned at scar. For 1 wk wasn't able to exercise due to vomiting a lot. PT-OP-J Posture/Palpation/Skin Start: 11/22/23 19:42 Freq: Status: Active Protocol: Document 01/28/24 15:35 LRN (Rec: 01/28/24 15:38 LRN [id number]) Palpation Assessment Location abdomen Palpation Location Abdomen Palpation Details Abdominal contraction not strong enough to be palpable w /o reaching fwd w/arms on head lift. Umbilicus 3 above: closed ( just below Xiphoid Process. Umbilicus 2 above: 1.5 very very shallow Umbilicus 1 above: 2.0 finger widths (FWs) Umbilicus Umbilicus: 1 below: 2.0 FWs Umbilicus: 2 below: 1.5 FWs Umbilicus: 3 below: Closed, tender Umbilicus: 4 below: Closed, tender PT-OP-K Range of Motion Start: 11/22/23 19:42 Freq: Status: Active Protocol: Document 01/28/24 14:30 LRN (Rec: 01/28/24 15:30 LRN [id number]) Hip Goniometric Range of Motion Hip Right Passive Testing Position Supine Flexion w/Knee Flexed 115 Internal Rotation 40 External Rotation 60 Left Passive Testing Position Supine Flexion w/Knee Flexed 120 Internal Rotation 40 External Rotation 60 PT-OP-L Special Tests Start: 11/22/23 19:42 Freq: Status: Active Protocol: Document 12/21/23 14:35 LRN (Rec: 12/21/23 15:52 LRN [id number]) Special Tests Knee Special Tests Varus- 25 Degrees Test Results negative bilaterally Valgus- 25 Degrees Test Results negative bilaterally PT-OP-M Strength Start: 11/22/23 19:42 Freq: Status: Active Protocol: Document 01/28/24 14:30 LRN (Rec: 01/28/24 15:30 LRN [id number]) Trunk Strength Trunk Manual Muscle Testing Core Stabilization Generally 4/5, except rotation is 3+/5 with loss PT-OP-Q Treatments Start: 11/22/23 19:42 Freq: Status: Active Protocol: Document 03/07/24 14:40 LRN (Rec: 03/07/24 15:03 LRN [id number]) Therapeutic Exercises Supine Exercises TA/Heel slide Supine Exercise Name TA step out/heel slide Side bilateral Reps/Minutes 4' TA tightening Supine Exercise Name TA tightening; verbal review of ex in sidelie and 4 pt Reps/Minutes 5' Standing Exercises Trunk rotation Standing Exercise Name I/S pt to add to HEP: Active trunk rotation Side bilateral Reps/Minutes 1' TA tightening Standing Exercise Name TA tightening. Reps/Minutes 2' Manual Therapy Treatment Soft Tissue Mobilization Scar mob Body Location L 1/2 of scar mob Mobilization Type Myofascial Release Intensity/Depth Superficial Body Position Supine Comments Painful on L side. I/S pt in removal of Ktape w/ in 5 days. Taping scar Body Location Lower abdomen at scar Treatment Focus Improve scar tissue mobility Type of Tape Kinesio Tape Skin Inspection Good Comments Scar sensitive. I/S pt in safe & proper removal of K-tape in 5 days. PT-OP-T Assessment and Plan Start: 11/22/23 19:42 Freq: Status: Active Protocol: Document 03/07/24 14:40 LRN (Rec: 03/07/24 15:03 LRN [id number]) Physical Therapy Assessment Goals Three Impairment Abdominal weakness causing pain with activities Impairment Abdominal pain (5/10) limiting functional ability to take care of kids. Abdominal strength with head lift is 1/5. Short Term Goal (STG) Improve abdominal strength with pt able to perform a TA with a head lift. 01/28/24: TA edges felt only with arms reaching with head lift, not with head lift alone . STG Duration 2 months-01/25/24 [employer] Fin[employer] Goal (LTG) Improve abdominal strength with pt able to be more functional, ex - hug kids w/o pain. LTG Duration 4 months-04/11/24 Two Impairment Abdominal pain (5/10) with pressure against stomach Short Term Goal (STG) Decrease abodominal pain to level no greater than 2.5/10. 01/28/24: Pt reports pain reduction of 50%. STG Duration 2 months-01/25/24 (o01/28/24: MET GOAL) [employer] Goal (LTG) No abdominal pain with kids sitting on lap. 01/28/24: Kids sitting on lap, if they lean against abdomen too hard, abdominal pain. LTG Duration 3 months-03/14/24 progressed 01/28/24 One Impairment Pt lacks appropriate self care HEP Short Term Goal (STG) Pt education in transfers to protect her Diastasis Rectus ( DR). 12/14/23: Pt educated in use of towel for transfers to protech her DR. STG Duration 2 wks-12/14/23 (12/24/23: MET GOAL) [employer]man Goal (LTG) Pt will be independent with a self care HEP of core/hip strengthening, hip and janene knee ROM exercises. 11/30/23: HEP: Sup, Sidelie TA tightening & I/S in standing. Pt educated in log roll transfer OOB. 01/21/24: HEP: Diaphragmatic Breathing (DB), TA/DB, TA/ Breath/LE roll in-out. 01/28/24: Added to HEP: Verbal I/S for TA/Heel slides. LTG Duration 5 months-05/02/24 progressed 01/28/24 Assessment Summary Assessment 27 yo female 6 months post- with abdominal pain from scar and core abdominal weakness. Today pt has increased L sided C- section scar pain that decreased after MFR to the scar and application of the K- tape. Physical Therapy Plan Frequency and Duration Frequency of Treatment 1x/Week Duration of treatment (weeks) 22 Plan of Care Start Date 11/30/23 Plan of Care End Date 05/02/24 Next Visit Focus/Plan Next Note Type Treatment Note Next Visit Plan Next: Monitor if pt using DR protection technique for transfers. Assess strength of knee, and PF assessment for genital prolapse. Review TA/ step outs & HEP HO for active trunk rotation. Education: coordination of proper breaths with ADLs, body mechanics and exercise. Strengthening: Core/TA post- . Exer: trunk flex (R>L KTC), & core strengthening (progress TA/roll in/out program).
--- NOTE | 2024-03-21 15:44 | PT.OTN ---
Current Diagnoses Constipation, unspecified (03/21/24) Pain in unspecified knee (03/21/24) Muscle weakness (generalized) (03/21/24) Myalgia, other site (03/21/24) Other female genital prolapse (03/21/24) Physical Therapy Treatment Note PT-OP-A Visit Information Start: 11/22/23 19:42 Freq: Status: Active Protocol: Document 03/21/24 14:33 LRN (Rec: 03/21/24 15:42 LRN [id number]) Out-Patient Physical Therapy Visit Information Visit Information Visit Type Treatment Note Visit Start Time 14:33 Visit Stop Time 15:15 Visit Number 8 Evaluation Information Evaluation Date 11/30/23 Precautions Precautions Neuropathy, depression, Chronic back & neck pain (10 yrs), headaches (pt reports wgt - 160#) PT-OP-B Current Condition Start: 11/22/23 19:42 Freq: Status: Active Protocol: Document 11/30/23 12:34 LRN (Rec: 11/30/23 16:40 LRN [id number]) Current Condition History of Current Condition Onset Date 08/17/23 Current Complaints Pain across abdomen; janene knee pain (with max bending) around the joint. History of Current Condition Pt is 15 wks post- C- section , referred for abdominal pain, instability, and janene knee pain. Pt reports abdominal pain is at the C- section scar and above but not as high as the belly button level (3 fingers down). R side of scar and abdomen is more painful, initially it was the L side. Pt is having trouble with functional activities with her children due to the abdominal and janene knee pain. Pt denies urinary symptoms. Has constipation, but has had it for a long time . Taking stool softners and laxitives to have BM 3 days. Before stools every 2-3 days without medication. Developmental History Developmental History 4 pregnancies, last brth C- section but others were vaginal. Mild tear with first of twins. children 4.5 x 2, age 3, and 5 wks. Treatment Goals Patient/Caregiver Goals Pt goal is: Cut down on abodominal pain No abominal pain with kids sitting on lap. Becoming more functional, hug kids w/o pain. Not feeling protective of stomach. Be able to sit on knees to get down on the floor. Personal Factors Other Personal Factors That May Effect Pt has 4 children (4-1/2 twins Therapy/Recovery , 3 yo & 5 wk old), lives in [place]; therefore can make only certain timeframes for appointments. PT-OP-C Subjective Start: 11/22/23 19:42 Freq: Status: Active Protocol: Document 03/21/24 14:33 LRN (Rec: 03/21/24 15:42 LRN [id number]) OP-PT Subjective Patient Comments Patient Comments ABdominal pain better after taping. Not as often or as bad. Does TA and TA marching ex daily. Protects her DR with transfers but she tends to hold her breath. No urinary leakage. Tingly and light headed with supine>sit. Pt sat and had 2 cups of water and reported she hasn't eaten and has snacks in car. Pt felt normal after sitting and drinking water. PT-OP-J Posture/Palpation/Skin Start: 11/22/23 19:42 Freq: Status: Active Protocol: Document 01/28/24 15:35 LRN (Rec: 01/28/24 15:38 LRN [id number]) Palpation Assessment Location abdomen Palpation Location Abdomen Palpation Details Abdominal contraction not strong enough to be palpable w /o reaching fwd w/arms on head lift. Umbilicus 3 above: closed ( just below Xiphoid Process. Umbilicus 2 above: 1.5 very very shallow Umbilicus 1 above: 2.0 finger widths (FWs) Umbilicus Umbilicus: 1 below: 2.0 FWs Umbilicus: 2 below: 1.5 FWs Umbilicus: 3 below: Closed, tender Umbilicus: 4 below: Closed, tender PT-OP-K Range of Motion Start: 11/22/23 19:42 Freq: Status: Active Protocol: Document 01/28/24 14:30 LRN (Rec: 01/28/24 15:30 LRN [id number]) Hip Goniometric Range of Motion Hip Right Passive Testing Position Supine Flexion w/Knee Flexed 115 Internal Rotation 40 External Rotation 60 Left Passive Testing Position Supine Flexion w/Knee Flexed 120 Internal Rotation 40 External Rotation 60 PT-OP-L Special Tests Start: 11/22/23 19:42 Freq: Status: Active Protocol: Document 12/21/23 14:35 LRN (Rec: 12/21/23 15:52 LRN [id number]) Special Tests Knee Special Tests Varus- 25 Degrees Test Results negative bilaterally Valgus- 25 Degrees Test Results negative bilaterally PT-OP-M Strength Start: 11/22/23 19:42 Freq: Status: Active Protocol: Document 01/28/24 14:30 LRN (Rec: 01/28/24 15:30 LRN [id number]) Trunk Strength Trunk Manual Muscle Testing Core Stabilization Generally 4/5, except rotation is 3+/5 with loss PT-OP-Q Treatments Start: 11/22/23 19:42 Freq: Status: Active Protocol: Document 03/21/24 14:33 LRN (Rec: 03/21/24 15:42 LRN [id number]) Therapeutic Exercises Supine Exercises TA/Heel slide Supine Exercise Name TA step out/heel slide Side bilateral Reps/Minutes 4' TA tightening Supine Exercise Name TA tightening; verbal review of ex in sidelie and 4 pt Reps/Minutes 5' Sidelying Exercises TA/Clamshell Sidelying Exercise Name TA/Clamshell Side bilateral Reps/Minutes 15x each Comments V cuing for TA/trunk extensors tight and phys assist for knee lift. Standing Exercises Trunk rotation Standing Exercise Name Active trunk rotation Side bilateral Reps/Minutes 3' TA tightening Standing Exercise Name TA tightening. Reps/Minutes 2' Therapeutic Activity Therapeutic Activity Sidelie<>opp sidelie Name Sidelie<>opp sidelie Reps/Minutes 2' Comments Cuing to tighten TA and breathe through movement. Sup<>sit Name sup<>sit Reps/Minutes 5' x 2 Comments Cuing for TA tight and not breath holding. Manual Therapy Treatment Taping scar Body Location Lower abdomen at scar Treatment Focus Improve scar tissue mobility Type of Tape Kinesio Tape Skin Inspection Good Comments Scar sensitive. I/S pt in safe & proper removal of K-tape in 5 days. Self-Care/Home Management Treatment Activities Self-Care/Home Management Activities Issued HEP: Angelina: Long Hold & Quick Flick PT-OP-T Assessment and Plan Start: 11/22/23 19:42 Freq: Status: Active Protocol: Document 03/21/24 14:33 LRN (Rec: 03/21/24 15:42 LRN [id number]) Physical Therapy Assessment Goals Three Impairment Abdominal weakness causing pain with activities Impairment Abdominal pain (5/10) limiting functional ability to take care of kids. Abdominal strength with head lift is 1/5. Short Term Goal (STG) Improve abdominal strength with pt able to perform a TA with a head lift. 01/28/24: TA edges felt only with arms reaching with head lift, not with head lift alone . STG Duration 2 months-01/25/24 Senior Living Goal (LTG) Improve abdominal strength with pt able to be more functional, ex - hug kids w/o pain. LTG Duration 4 months-04/11/24 Two Impairment Abdominal pain (5/10) with pressure against stomach Short Term Goal (STG) Decrease abodominal pain to level no greater than 2.5/10. 01/28/24: Pt reports pain reduction of 50%. STG Duration 2 months-01/25/24 (o01/28/24: MET GOAL) Senior Living Goal (LTG) No abdominal pain with kids sitting on lap. 01/28/24: Kids sitting on lap, if they lean against abdomen too hard, abdominal pain. 03/21/24: Painful if kids lean back into her when on her lap. LTG Duration 3 months-03/14/24 progressed 01/28/24 One Impairment Pt lacks appropriate self care HEP Short Term Goal (STG) Pt education in transfers to protect her Diastasis Rectus ( DR). 12/14/23: Pt educated in use of towel for transfers to protech her DR. STG Duration 2 wks-12/14/23 (12/24/23: MET GOAL) Senior Living Goal (LTG) Pt will be independent with a self care HEP of core/hip strengthening, hip and janene knee ROM exercises. 11/30/23: HEP: Sup, Sidelie TA tightening & I/S in standing. Pt educated in log roll transfer OOB. 01/21/24: HEP: Diaphragmatic Breathing (DB), TA/DB, TA/ Breath/LE roll in-out. 01/28/24: Added to HEP: Verbal I/S for TA/Heel slides. LTG Duration 5 months-05/02/24 progressed 01/28/24 Assessment Summary Assessment 27 yo female 6 months post- with abdominal pain from scar and core abdominal weakness. Today, R hip strength and core strength appears greater on the R; easier to do clamshell and hold core stable in L sidelie. Per PF assessment, the external PF is red and dry and internally tender in PF clock. Per PF assess: bladder & rectal prolapse is 3 /5; PF strength is good for quick flicks and weak for endurance hold (2-3 secs before fatigue). Pt has a hard time coordinating breathe with exercises and transfers. Pt shows more awareness after educating in reason for breathe with exercise (prevent doming and DR protection). Pt core strength is slowly improving. Cystocele and rectocele present. Pt able to perform a PF contraction drawing up and in after training. Physical Therapy Plan Frequency and Duration Frequency of Treatment 1x/Week Duration of treatment (weeks) 22 Plan of Care Start Date 11/30/23 Plan of Care End Date 05/02/24 Next Visit Focus/Plan Next Note Type Treatment Note Next Visit Plan Next: (Monitor DR protection technique for transfers). Assess strength of knee. HEP HO for active trunk rotation. Education: coordination of proper breaths with ADLs, body mechanics and exercise. Strengthening: Core/TA post- . Exer: trunk flex (R>L KTC), & core strengthening (progress TA/roll in/out program).
--- NOTE | 2024-04-04 16:05 | PT.OTN ---
Current Diagnoses Constipation, unspecified (04/04/24) Pain in unspecified knee (04/04/24) Muscle weakness (generalized) (04/04/24) Myalgia, other site (04/04/24) Other female genital prolapse (04/04/24) Physical Therapy Treatment Note PT-OP-A Visit Information Start: 11/22/23 19:42 Freq: Status: Active Protocol: Document 04/04/24 13:58 LRN (Rec: 04/04/24 15:59 LRN [id number]) Out-Patient Physical Therapy Visit Information Visit Information Visit Type Treatment Note Visit Start Time 13:58 Visit Stop Time 14:58 Visit Number 9 Evaluation Information Evaluation Date 11/30/23 Precautions Precautions Neuropathy, depression, Chronic back & neck pain (10 yrs), headaches (pt reports wgt - 160#) PT-OP-B Current Condition Start: 11/22/23 19:42 Freq: Status: Active Protocol: Document 11/30/23 12:34 LRN (Rec: 11/30/23 16:40 LRN [id number]) Current Condition History of Current Condition Onset Date 08/17/23 Current Complaints Pain across abdomen; janene knee pain (with max bending) around the joint. History of Current Condition Pt is 15 wks post- C- section , referred for abdominal pain, instability, and janene knee pain. Pt reports abdominal pain is at the C- section scar and above but not as high as the belly button level (3 fingers down). R side of scar and abdomen is more painful, initially it was the L side. Pt is having trouble with functional activities with her children due to the abdominal and janene knee pain. Pt denies urinary symptoms. Has constipation, but has had it for a long time . Taking stool softners and laxitives to have BM 3 days. Before stools every 2-3 days without medication. Developmental History Developmental History 4 pregnancies, last brth C- section but others were vaginal. Mild tear with first of twins. children 4.5 x 2, age 3, and 5 wks. Treatment Goals Patient/Caregiver Goals Pt goal is: Cut down on abodominal pain No abominal pain with kids sitting on lap. Becoming more functional, hug kids w/o pain. Not feeling protective of stomach. Be able to sit on knees to get down on the floor. Personal Factors Other Personal Factors That May Effect Pt has 4 children (4-1/2 twins Therapy/Recovery , 3 yo & 5 wk old), lives in [place]; therefore can make only certain timeframes for appointments. PT-OP-C Subjective Start: 11/22/23 19:42 Freq: Status: Active Protocol: Document 04/04/24 13:58 LRN (Rec: 04/04/24 15:59 LRN [id number]) OP-PT Subjective Patient Comments Patient Comments Has occasional abdominal pain hasn't noticed pain with child on her lap. In past year has not had an orgasm and was wondering if she has a pinched nerve. Pt requests assessment for pain with intercourse. Previously while pt is on top, has had it on hands/knees. Denies lower abdominal pain. Pain at clitoris at all positions of intercourse. Deep thrust pain after clitoris is overwhelmed (close to orgasm) in supine or doggy stylem, not while on top. PT-OP-J Posture/Palpation/Skin Start: 11/22/23 19:42 Freq: Status: Active Protocol: Document 04/04/24 13:59 LRN (Rec: 04/04/24 16:05 LRN [id number]) Palpation Assessment Location abdomen Palpation Location Abdomen for DR (FW=fingerwidth ) Palpation Details Abdominal contraction felt deep, but not felt 1 & 2 inches above umbilicus. No pain w/palpation. Umbilicus 3 above: closed ( just below Xiphoid Process. Umbilicus 2 above: edges of rectus not felt (previously 1. 5 very very shallow) Umbilicus 1 above: edges of rectus not felt (previously 2. 0 finger widths (FWs)) Umbilicus Umbilicus: 1 below: 3.5 FWs ( previously2.0) Umbilicus: 2 below: 2 FWs ( previously 1.5 FW) Umbilicus: 3 below: 2 FWs ( previously felt closed, tender ) Umbilicus: 4 below: 0.5 FW ( previously felt closed, tender ) PT-OP-K Range of Motion Start: 11/22/23 19:42 Freq: Status: Active Protocol: Document 01/28/24 14:30 LRN (Rec: 01/28/24 15:30 LRN [id number]) Hip Goniometric Range of Motion Hip Right Passive Testing Position Supine Flexion w/Knee Flexed 115 Internal Rotation 40 External Rotation 60 Left Passive Testing Position Supine Flexion w/Knee Flexed 120 Internal Rotation 40 External Rotation 60 PT-OP-L Special Tests Start: 11/22/23 19:42 Freq: Status: Active Protocol: Document 12/21/23 14:35 LRN (Rec: 12/21/23 15:52 LRN [id number]) Special Tests Knee Special Tests Varus- 25 Degrees Test Results negative bilaterally Valgus- 25 Degrees Test Results negative bilaterally PT-OP-M Strength Start: 11/22/23 19:42 Freq: Status: Active Protocol: Document 01/28/24 14:30 LRN (Rec: 01/28/24 15:30 LRN [id number]) Trunk Strength Trunk Manual Muscle Testing Core Stabilization Generally 4/5, except rotation is 3+/5 with loss PT-OP-Q Treatments Start: 11/22/23 19:42 Freq: Status: Active Protocol: Document 04/04/24 13:58 LRN (Rec: 04/04/24 15:59 LRN [id number]) Therapeutic Exercises Supine Exercises TA/Heel slide Supine Exercise Name TA step out/heel slide Side bilateral Reps/Minutes 4' TA tightening Supine Exercise Name TA tightening; verbal review of ex in sidelie and 4 pt Reps/Minutes 5' Comments DR assessment made Sidelying Exercises TA/Clamshell Sidelying Exercise Name TA/Clamshell Side bilateral Reps/Minutes 15x2 each (9' to start for training of core stab w/knee lift) Comments Much cuing and training for core stable while lifting knee Standing Exercises Pelvic rotation Standing Exercise Name Reciprical pelvic rotation. Reps/Minutes 4' Comments Phys cuing needed to get pt to perform pelvic rotation & for awareness. Other Exercises Wag the Tail Side bilateral Reps/Minutes 3' Comments Cued to hold for stretch 2-3 secs Jose Pose Reps/Minutes 2' x 3 Hands/knees Other Exercise Name TA tightening Reps/Minutes 2'x 3 Self-Care/Home Management Treatment Education Patient Education Pain Management Other Education Discussion of self care for PF pain with intercourse: Educated pt in pain management with hot/cold treatment. Issued handout for genital/ vulvar care. Discussed prior intercourse use of lubrication and having BM beforehand. Activities Self-Care/Home Management Activities Issued and reviewed HEP: 4 pt TA tightening, Rock Back ( modified child's pose), Wag the Tail. At pt's request, discussed possible reasons for PF pain with intercourse both internally and externally. Manual internal/external assessment performed of PF ( see Palpation). PT-OP-T Assessment and Plan Start: 11/22/23 19:42 Freq: Status: Active Protocol: Document 04/04/24 13:58 LRN (Rec: 04/04/24 15:59 LRN [id number]) Physical Therapy Assessment Goals Three Impairment Abdominal weakness causing pain with activities Impairment Abdominal pain (5/10) limiting functional ability to take care of kids. Abdominal strength with head lift is 1/5. Short Term Goal (STG) Improve abdominal strength with pt able to perform a TA with a head lift. 01/28/24: TA edges felt only with arms reaching with head lift, not with head lift alone . 04/04/24: Pt able to maintain TA contraction with head lift . TA edges felt in varying degree with head lift. Difficulty feeling 1 & 2 above umbilicus. STG Duration 2 months-01/25/24 progressing 04/04/24 [facility] Goal (LTG) Improve abdominal strength with pt able to be more functional, ex - hug kids w/o pain. LTG Duration 4 months-04/11/24 Two Impairment Abdominal pain (5/10) with pressure against stomach Short Term Goal (STG) Decrease abodominal pain to level no greater than 2.5/10. 01/28/24: Pt reports pain reduction of 50%. STG Duration 2 months-01/25/24 (o01/28/24: MET GOAL) Technology Adoption Manager Goal (LTG) No abdominal pain with kids sitting on lap. 01/28/24: Kids sitting on lap, if they lean against abdomen too hard, abdominal pain. 03/21/24: Painful if kids lean back into her when on her lap. 04/04/24: Pt has not noted abdominal pain with kids sitting on lap, although she notes the kids have not sat on her lap lately. LTG Duration 3 months-03/14/24 (04/04/24: Met for first time) One Impairment Pt lacks appropriate self care HEP Short Term Goal (STG) Pt education in transfers to protect her Diastasis Rectus ( DR). 12/14/23: Pt educated in use of towel for transfers to protech her DR. STG Duration 2 wks-12/14/23 (12/24/23: MET GOAL) Technology Adoption Manager Goal (LTG) Pt will be independent with a self care HEP of core/hip strengthening, hip and janene knee ROM exercises. 11/30/23: HEP: Sup, Sidelie TA tightening & I/S in standing. Pt educated in log roll transfer OOB. 01/21/24: HEP: Diaphragmatic Breathing (DB), TA/DB, TA/ Breath/LE roll in-out. 01/28/24: Added to HEP: Verbal I/S for TA/Heel slides. 04/04/24: HEP: Wag the tail, Rock back, 4 pt TA; HO for genital/vulvar care, contrast bath for pain. LTG Duration 5 months-05/02/24 progressed 04/04/24 Assessment Summary Assessment Pt returns after 2 wks; 27 yo female ~7-1/2 months post- with abdominal pain from scar and core abdominal weakness & janene knee pain. Today, she demonstrated cognizance of protecting her DR with hand placement on abdomen for self awareness. She notes improvement because she has not noticed abdominal pain with her children sitting on her lap. Per diastasis rectus (DR) assessment, her transverse abdominus (TA) muscles are still very weak and is difficult to feels lateral edges of her rectus abdominus due to weakness in her core muscle strength. Per PF assessment, the external PF is red and internally she is notably tender on the R lateral callejas and posteriorly at rectal location and edges of rectum. The pt is also very tender at the clitoris and lorenz of clitoris with redness and possibly swelling; appearing as inflammation present. She has normal clitoral reflex. The pt may be having pain with intercourse from external tissue irritation from washing with a rough cloth and pressure and intercourse. Pt may need referral back to referring provider for estrogen medication to improve external/internal tissue health and cortisone creme to reduce swelling/inflammation around clitoris if not improved. Physical Therapy Plan Frequency and Duration Frequency of Treatment 1x/Week Duration of treatment (weeks) 22 Plan of Care Start Date 11/30/23 Plan of Care End Date 05/02/24 Next Visit Focus/Plan Next Note Type Progress Note Next Visit Plan Next: MMT knees. Assess for questions of vulvar/genital care. Assess swelling in external PF (clitoris & lorenz), and for cystocele/rectocele ( needing referral back to physician to address conditions). PN-assess abdominal strength ( hug kids w/o pain). -assess for PF/clitoris pain and swelling/tenderness; possible referral back to referring physician for assessment and referral for dysparenia, dry PF tissues. Review last issued HEP (LB stretches & core ex) HEP: HO for active trunk rotation strengthening. Education: coordination of proper breaths with ADLs, body mechanics and exercise. Strengthening: Core/TA post- . Exer: trunk flex (R>L KTC), & core strengthening (progress TA/roll in/out program).
--- NOTE | 2024-04-18 16:12 | PT.OTN ---
Current Diagnoses Constipation, unspecified (04/18/24) Pain in unspecified knee (04/18/24) Muscle weakness (generalized) (04/18/24) Myalgia, other site (04/18/24) Other female genital prolapse (04/18/24) Physical Therapy Treatment Note PT-OP-A Visit Information Start: 11/22/23 19:42 Freq: Status: Active Protocol: Document 04/18/24 13:49 LRN (Rec: 04/18/24 14:34 LRN [id number]) Out-Patient Physical Therapy Visit Information Visit Information Visit Type Treatment Note Visit Start Time 13:49 Visit Stop Time 14:28 Visit Number 10 Evaluation Information Evaluation Date 11/30/23 Precautions Precautions Neuropathy, depression, Chronic back & neck pain (10 yrs), headaches (pt reports wgt - 160#) PT-OP-B Current Condition Start: 11/22/23 19:42 Freq: Status: Active Protocol: Document 11/30/23 12:34 LRN (Rec: 11/30/23 16:40 LRN [id number]) Current Condition History of Current Condition Onset Date 08/17/23 Current Complaints Pain across abdomen; janene knee pain (with max bending) around the joint. History of Current Condition Pt is 15 wks post- C- section , referred for abdominal pain, instability, and janene knee pain. Pt reports abdominal pain is at the C- section scar and above but not as high as the belly button level (3 fingers down). R side of scar and abdomen is more painful, initially it was the L side. Pt is having trouble with functional activities with her children due to the abdominal and janene knee pain. Pt denies urinary symptoms. Has constipation, but has had it for a long time . Taking stool softners and laxitives to have BM 3 days. Before stools every 2-3 days without medication. Developmental History Developmental History 4 pregnancies, last brth C- section but others were vaginal. Mild tear with first of twins. children 4.5 x 2, age 3, and 5 wks. Treatment Goals Patient/Caregiver Goals Pt goal is: Cut down on abodominal pain No abominal pain with kids sitting on lap. Becoming more functional, hug kids w/o pain. Not feeling protective of stomach. Be able to sit on knees to get down on the floor. Personal Factors Other Personal Factors That May Effect Pt has 4 children (4-1/2 twins Therapy/Recovery , 3 yo & 5 wk old), lives in [place]; therefore can make only certain timeframes for appointments. PT-OP-C Subjective Start: 11/22/23 19:42 Freq: Status: Active Protocol: Document 04/18/24 13:49 LRN (Rec: 04/18/24 14:34 LRN [id number]) OP-PT Subjective Patient Comments Patient Comments Harder to find ms and can't control the ms as well, not sure why. 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 Has happened for past 5-6 yrs ( w/twins). General sensitivity with intercouse has gone down, still has pain with orgasm, that declines with time, not with intercourse, with tips from last session. Thinks the pain may be related to her back. Next appt is going to be her last appt due to change in insurance and pt not have funds to continue. Not getting enough sleep. Patient Questionnaires Pelvic Pain and Urgency/Frequency Patient Symptom Scale Pelvic Pain Score 5 PT-OP-J Posture/Palpation/Skin Start: 11/22/23 19:42 Freq: Status: Active Protocol: Document 04/04/24 13:59 LRN (Rec: 04/04/24 16:05 LRN [id number]) Palpation Assessment Location abdomen Palpation Location Abdomen for DR (FW=fingerwidth ) Palpation Details Abdominal contraction felt deep, but not felt 1 & 2 inches above umbilicus. No pain w/palpation. Umbilicus 3 above: closed ( just below Xiphoid Process. Umbilicus 2 above: edges of rectus not felt (previously 1. 5 very very shallow) Umbilicus 1 above: edges of rectus not felt (previously 2. 0 finger widths (FWs)) Umbilicus Umbilicus: 1 below: 3.5 FWs ( previously2.0) Umbilicus: 2 below: 2 FWs ( previously 1.5 FW) Umbilicus: 3 below: 2 FWs ( previously felt closed, tender ) Umbilicus: 4 below: 0.5 FW ( previously felt closed, tender ) PT-OP-K Range of Motion Start: 11/22/23 19:42 Freq: Status: Active Protocol: Document 01/28/24 14:30 LRN (Rec: 01/28/24 15:30 LRN [id number]) Hip Goniometric Range of Motion Hip Right Passive Testing Position Supine Flexion w/Knee Flexed 115 Internal Rotation 40 External Rotation 60 Left Passive Testing Position Supine Flexion w/Knee Flexed 120 Internal Rotation 40 External Rotation 60 PT-OP-L Special Tests Start: 11/22/23 19:42 Freq: Status: Active Protocol: Document 12/21/23 14:35 LRN (Rec: 12/21/23 15:52 LRN [id number]) Special Tests Knee Special Tests Varus- 25 Degrees Test Results negative bilaterally Valgus- 25 Degrees Test Results negative bilaterally PT-OP-M Strength Start: 11/22/23 19:42 Freq: Status: Active Protocol: Document 01/28/24 14:30 LRN (Rec: 01/28/24 15:30 LRN [id number]) Trunk Strength Trunk Manual Muscle Testing Core Stabilization Generally 4/5, except rotation is 3+/5 with loss PT-OP-Q Treatments Start: 11/22/23 19:42 Freq: Status: Active Protocol: Document 04/18/24 13:49 LRN (Rec: 04/18/24 14:34 LRN [id number]) Therapeutic Exercises Sidelying Exercises Heel SLide Sidelying Exercise Name Kegel w/ex Comments Much extra time needed for pt awareness trng for TA tight and stable w/mvmt Heel SLide & SLR Sidelying Exercise Name Kegel with exercise Reps/Minutes 10x each Comments Much extra time taken for proper mvmt pattern TA/Clamshell Sidelying Exercise Name TA/Kegel/Clamshell Reps/Minutes 10x, 5x Comments R clamshell is easier. TA tightening Reps/Minutes 10 SH x 5' Self-Care/Home Management Treatment Education Other Education Reviewed genital hygiene. Discussed briefly areas to monitor to see if they will influence her pain with orgasm . PT-OP-T Assessment and Plan Start: 11/22/23 19:42 Freq: Status: Active Protocol: Document 04/18/24 13:49 LRN (Rec: 04/18/24 14:34 LRN [id number]) Physical Therapy Assessment Rehab Potential Rehabilitation Potential Good Evaluation Complexity Number of Personal Factors/Comorbidities 1-2 Number of Body Systems Impaired 4 or More Clinical Presentation at Evaluation Evolving Impairments Impairments Activity Tolerance,Functional Activities,Functional Mobility ,Pain,ROM,Soft Tissue Mobility ,Strength,Transfers Goals Three Impairment Abdominal weakness causing pain with activities Impairment Abdominal pain (5/10) limiting functional ability to take care of kids. Abdominal strength with head lift is 1/5. Short Term Goal (STG) Improve abdominal strength with pt able to perform a TA with a head lift. 01/28/24: TA edges felt only with arms reaching with head lift, not with head lift alone . 04/04/24: Pt able to maintain TA contraction with head lift . TA edges felt in varying degree with head lift. Difficulty feeling 1 & 2 above umbilicus. STG Duration 2 months-01/25/24 progressing 04/04/24 Cyberathlete Goal (LTG) Improve abdominal strength with pt able to be more functional, ex - hug kids w/o pain. 04/18/24: Pt able to hug kids as long as they don't slam into her with sometimes mild discomfort or w/o pain. LTG Duration 4 months-04/11/24 (04/18/24: MET GOAL) Two Impairment Abdominal pain (5/10) with pressure against stomach Short Term Goal (STG) Decrease abodominal pain to level no greater than 2.5/10. 01/28/24: Pt reports pain reduction of 50%. 04/18/24: Tender from belly button to pubic bone. Pain rated 1-2/10. STG Duration 2 months-01/25/24 (o01/28/24: MET GOAL) Cyberathlete Goal (LTG) No abdominal pain with kids sitting on lap. 01/28/24: Kids sitting on lap, if they lean against abdomen too hard, abdominal pain. 03/21/24: Painful if kids lean back into her when on her lap. 04/04/24: Pt has not noted abdominal pain with kids sitting on lap, although she notes the kids have not sat on her lap lately. 04/18/24: Uncomfortable, mildly painful some of the time with kids sitting on her lap. Not a daily problem. LTG Duration 3 months-03/14/24 (04/18/24: MET GOAL) One Impairment Pt lacks appropriate self care HEP Short Term Goal (STG) Pt education in transfers to protect her Diastasis Rectus ( DR). 12/14/23: Pt educated in use of towel for transfers to protech her DR. STG Duration 2 wks-12/14/23 (12/24/23: MET GOAL) [facility] Goal (LTG) Pt will be independent with a self care HEP of core/hip strengthening, hip and janene knee ROM exercises. 11/30/23: HEP: Sup, Sidelie TA tightening & I/S in standing. Pt educated in log roll transfer OOB. 01/21/24: HEP: Diaphragmatic Breathing (DB), TA/DB, TA/ Breath/LE roll in-out. 01/28/24: Added to HEP: Verbal I/S for TA/Heel slides. 04/04/24: HEP: Wag the tail, Rock back, 4 pt TA; HO for genital/vulvar care, contrast bath for pain. 04/18/24: HEP: TA/Kegel/Heel slide & heel slide/SLR. Pt has KTC, Cat/cow from her online back PT program. LTG Duration 5 months-05/02/24 progressed 04/18/24 Assessment Summary Assessment Pt returns after 2 wks; 27 yo female ~7-1/2 months post- with abdominal pain from scar and core abdominal weakness & janene knee pain. Pt has no questions regarding previous educ of vulvar/genital care. She has had lessening of pain with intercourse, pain only with orgasm; therefore did not have to assess for swelling of the clitoral lorenz. Pt notes she is most of the time coordinating proper breaths with ADLs, body mechanics. PUF score is 5, initially was 16, showing good improvement. Pt is happy with her progress and due to insurance limits is only able to attend one more therapy session next week for review/placement on her HEP and addition of core rot ex's. Physical Therapy Plan Frequency and Duration Frequency of Treatment 1x/Week Duration of treatment (weeks) 2 Plan of Care Start Date 11/30/23 Plan of Care End Date 05/02/24 Therapeutic Interventions Therapeutic Interventions Home Exercise Program,Manual Therapy,Neuromuscular Re- education,Self-Care/Home Management,Soft Tissue Mobilization,Taping, Therapeutic Activities, Therapeutic Exercises Next Visit Focus/Plan Next Note Type Discharge Summary Next Visit Plan Next: LEFS. MMT knees. Add core rot strengthening (HEP: HO for active trunk rotation strengthening). If time, review last issued HEP (LB stretches & core ex) and if needed, add core strengthening (TA/roll in/out program progression). Education: review coordination of breath with exercise. Assess for dry PF tissues & dysparenia. Assess for cystocele/rectocele (needing referral back to physician to address conditions).
--- NOTE | 2024-04-25 16:14 | PT.OTN ---
Current Diagnoses Constipation, unspecified (04/25/24) Pain in unspecified knee (04/25/24) Muscle weakness (generalized) (04/25/24) Myalgia, other site (04/25/24) Other female genital prolapse (04/25/24) Physical Therapy Treatment Note PT-OP-A Visit Information Start: 11/22/23 19:42 Freq: Status: Active Protocol: Document 04/25/24 13:51 LRN (Rec: 04/25/24 14:34 LRN [id number]) Out-Patient Physical Therapy Visit Information Visit Information Visit Type Treatment Note Visit Start Time 13:51 Visit Stop Time 14:34 Visit Number 11 Evaluation Information Evaluation Date 11/30/23 Precautions Precautions Neuropathy, depression, Chronic back & neck pain (10 yrs), headaches (pt reports wgt - 160#) PT-OP-B Current Condition Start: 11/22/23 19:42 Freq: Status: Active Protocol: Document 11/30/23 12:34 LRN (Rec: 11/30/23 16:40 LRN [id number]) Current Condition History of Current Condition Onset Date 08/17/23 Current Complaints Pain across abdomen; abdulkadir knee pain (with max bending) around the joint. History of Current Condition Pt is 15 wks post- C- section , referred for abdominal pain, instability, and abdulkadir knee pain. Pt reports abdominal pain is at the C- section scar and above but not as high as the belly button level (3 fingers down). R side of scar and abdomen is more painful, initially it was the L side. Pt is having trouble with functional activities with her children due to the abdominal and abdulkadir knee pain. Pt denies urinary symptoms. Has constipation, but has had it for a long time . Taking stool softners and laxitives to have BM 3 days. Before stools every 2-3 days without medication. Developmental History Developmental History 4 pregnancies, last brth C- section but others were vaginal. Mild tear with first of twins. children 4.5 x 2, age 3, and 5 wks. Treatment Goals Patient/Caregiver Goals Pt goal is: Cut down on abodominal pain No abominal pain with kids sitting on lap. Becoming more functional, hug kids w/o pain. Not feeling protective of stomach. Be able to sit on knees to get down on the floor. Personal Factors Other Personal Factors That May Effect Pt has 4 children (4-1/2 twins Therapy/Recovery , 3 yo & 5 wk old), lives in [place]; therefore can make only certain timeframes for appointments. PT-OP-C Subjective Start: 11/22/23 19:42 Freq: Status: Active Protocol: Document 04/25/24 13:51 LRN (Rec: 04/25/24 14:34 LRN [id number]) OP-PT Subjective Patient Comments Patient Comments No changes. If kids sit on lap there is discomfort in abdomen, but if readjust them, she is fine. States she has not noticed any knee pain. Patient Questionnaires Lower Extremity Functional Scale LEFS Score 60 LEFS Impairment 20 to 39% Impaired (Score 48- 62) OP-PT Pain Assessment Pain Assessment Grid Paper Pain Assessment Grid Completed Yes Location Posterior Neck Pain Location Details Posterior neck Intensity 0 Scale Used Numeric (0 - 10) Posterio trunk Pain Location Details posterior thoracic region Intensity 0 Scale Used Numeric (0 - 10) Abdulkadir knees Pain Location Details abdulkadir knees Intensity 0 Scale Used Numeric (0 - 10) Lower abdomen Pain Location Details Below belly button across abdomen Intensity 3 Scale Used Numeric (0 - 10) Description- Other Pain only when hit PT-OP-J Posture/Palpation/Skin Start: 11/22/23 19:42 Freq: Status: Active Protocol: Document 04/04/24 13:59 LRN (Rec: 04/04/24 16:05 LRN [id number]) Palpation Assessment Location abdomen Palpation Location Abdomen for DR (FW=fingerwidth ) Palpation Details Abdominal contraction felt deep, but not felt 1 & 2 inches above umbilicus. No pain w/palpation. Umbilicus 3 above: closed ( just below Xiphoid Process. Umbilicus 2 above: edges of rectus not felt (previously 1. 5 very very shallow) Umbilicus 1 above: edges of rectus not felt (previously 2. 0 finger widths (FWs)) Umbilicus Umbilicus: 1 below: 3.5 FWs ( previously2.0) Umbilicus: 2 below: 2 FWs ( previously 1.5 FW) Umbilicus: 3 below: 2 FWs ( previously felt closed, tender ) Umbilicus: 4 below: 0.5 FW ( previously felt closed, tender ) PT-OP-K Range of Motion Start: 11/22/23 19:42 Freq: Status: Active Protocol: Document 01/28/24 14:30 LRN (Rec: 01/28/24 15:30 LRN [id number]) Hip Goniometric Range of Motion Hip Right Passive Testing Position Supine Flexion w/Knee Flexed 115 Internal Rotation 40 External Rotation 60 Left Passive Testing Position Supine Flexion w/Knee Flexed 120 Internal Rotation 40 External Rotation 60 PT-OP-L Special Tests Start: 11/22/23 19:42 Freq: Status: Active Protocol: Document 12/21/23 14:35 LRN (Rec: 12/21/23 15:52 LRN [id number]) Special Tests Knee Special Tests Varus- 25 Degrees Test Results negative bilaterally Valgus- 25 Degrees Test Results negative bilaterally PT-OP-M Strength Start: 11/22/23 19:42 Freq: Status: Active Protocol: Document 04/25/24 13:51 LRN (Rec: 04/25/24 14:34 LRN [id number]) Knee Strength Knee Manual Muscle Testing Right Flexion (S2) 5 Normal Extension (L3) 5 Normal Left Flexion (S2) 5 Normal Extension (L3) 5 Normal PT-OP-Q Treatments Start: 11/22/23 19:42 Freq: Status: Active Protocol: Document 04/25/24 13:51 LRN (Rec: 04/25/24 14:34 LRN [id number]) Therapeutic Exercises Supine Exercises Full trunk rot Supine Exercise Name Hands swing opp knees Reps/Minutes 6' Comments Extra time to coordinate breathwork with ex Lower trunk rotation Supine Exercise Name Knees swing side<>side Reps/Minutes 5' Comments Extra time to coordinate breathwork with ex TA/Heel slide Supine Exercise Name TA step out/heel slide Side bilateral Reps/Minutes 4' TA/LE roll in-outs/TB/Pillow Supine Exercise Name Verbal review of HEP Reps/Minutes 1' Sidelying Exercises TA/Clamshell Sidelying Exercise Name TA/Kegel/Clamshell Side bilateral Reps/Minutes 15x Comments R clamshell is easier. Sitting Exercises Trunk rotation Sitting Exercise Name Active Trunk Rot w/ instructions in how to do with TB resistance. Reps/Minutes 6' Comments Extra time to coordinate breathwork with ex Standing Exercises Paloff press Standing Exercise Name Verbal I/S and review of HEP handout. Equipment Used L2 TB Reps/Minutes 2' Trunk rotation Standing Exercise Name Trunk Rot Side bilateral Equipment Used L2 TB Reps/Minutes 15x Comments Extra time to coordinate breathwork with ex Self-Care/Home Management Treatment Activities Self-Care/Home Management Activities Issued HEP: Trunk Rot (active , active resistive) in supine, sit, stand, and isometric in standing; Lev 2 TB issued. PT-OP-T Assessment and Plan Start: 11/22/23 19:42 Freq: Status: Active Protocol: Document 04/25/24 13:51 LRN (Rec: 04/25/24 14:34 LRN [id number]) Physical Therapy Assessment Goals Five Impairment Constipation, BM's every 3-4 days with use of stool softners. Short Term Goal (STG) Pt will be educated in bowel care program and BM massage. STG Duration (12/21/23: MET GOAL) [employer] Goal (LTG) Pt will be able to have BM daily or every other day. 01/07/24: Pt reports daily BM's. LTG Duration 5 months-05/02/24 (01/07/24: MET GOAL) Four Impairment Lacks normal abdulkadir knee flexion range. Impairment Painfree knee AROM flexion: 133 L, 140 R, Knee pain at PROM flex: 140 deg's bilaterally, pt not able to sit on heels when gettin up/ down off floor. Short Term Goal (STG) Pt educated in RICE technique. 11/30/23: Brief discussion on edema management for swelling in knees. 01/21/24: Educated pt in use of RICE technique for self care pain management. STG Duration 2 wks-12/14/23 (01/21/24: MET GOAL) Group Home Goal (LTG) Be able to tolerate max knee flex to sit on heels to get down onto the floor. 01/28/24: Able to sit all the way down on her knees. LTG Duration 4 months-04/11/24 (01/28/24: MET GOAL) Three Impairment Abdominal weakness causing pain with activities Impairment Abdominal pain (5/10) limiting functional ability to take care of kids. Abdominal strength with head lift is 1/5. Short Term Goal (STG) Improve abdominal strength with pt able to perform a TA with a head lift. 01/28/24: TA edges felt only with arms reaching with head lift, not with head lift alone . 04/04/24: Pt able to maintain TA contraction with head lift . TA edges felt in varying degree with head lift. Difficulty feeling 1 & 2 above umbilicus. 04/25/24: Pt able to lift head in supine w/o abdominal doming. STG Duration 2 months-01/25/24 (04/25/24: MET GOAL) Group Home Goal (LTG) Improve abdominal strength with pt able to be more functional, ex - hug kids w/o pain. 04/18/24: Pt able to hug kids as long as they don't slam into her with sometimes mild discomfort or w/o pain. LTG Duration 4 months-04/11/24 (04/18/24: MET GOAL) Two Impairment Abdominal pain (5/10) with pressure against stomach Short Term Goal (STG) Decrease abodominal pain to level no greater than 2.5/10. 01/28/24: Pt reports pain reduction of 50%. 04/18/24: Tender from belly button to pubic bone. Pain rated 1-2/10. STG Duration 2 months-01/25/24 (01/28/24: MET GOAL) [employer] Goal (LTG) No abdominal pain with kids sitting on lap. 01/28/24: Kids sitting on lap, if they lean against abdomen too hard, abdominal pain. 03/21/24: Painful if kids lean back into her when on her lap. 04/04/24: Pt has not noted abdominal pain with kids sitting on lap, although she notes the kids have not sat on her lap lately. 04/18/24: Uncomfortable, mildly painful some of the time with kids sitting on her lap. Not a daily problem. LTG Duration 3 months-03/14/24 (04/18/24: MET GOAL) One Impairment Pt lacks appropriate self care HEP Short Term Goal (STG) Pt education in transfers to protect her Diastasis Rectus ( DR). 12/14/23: Pt educated in use of towel for transfers to protech her DR. STG Duration 2 wks-12/14/23 (12/24/23: MET GOAL) [employer] Goal (LTG) Pt will be independent with a self care HEP of core/hip strengthening, hip and abdulkadir knee ROM exercises. 11/30/23: HEP: Sup, Sidelie TA tightening & I/S in standing. Pt educated in log roll transfer OOB. 01/21/24: HEP: Diaphragmatic Breathing (DB), TA/DB, TA/ Breath/LE roll in-out. 01/28/24: Added to HEP: Verbal I/S for TA/Heel slides. 04/04/24: HEP: Wag the tail, Rock back, 4 pt TA; HO for genital/vulvar care, contrast bath for pain. 04/18/24: HEP: TA/Kegel/Heel slide & heel slide/SLR. Pt has KTC, Cat/cow from her online back PT program. 04/25/24: HEP: Core strengthening of rotation manjinder , AROM & ARROM ex's. LTG Duration 5 months-05/02/24 (04/25/24 : MET GOAL) Assessment Summary Assessment Pt is a 27 yo female ~ 8 months post- with initially abdominal pain from scar and core abdominal weakness & abdulkadir knee pain. Today reports no pain at C-scar pain, abdominal pain that has decreased in intensity and resolution of her bilateral knee pain. The pt shows improved core strength, but abdominal pain remains when bumped by her children, that is probably related to her decreased core strength and diastasis rectus. The pt would benefit from further skilled physical therapy, but due to financial concerns the pt is agreeable to discharge today to her HEP. Physical Therapy Plan Frequency and Duration Frequency of Treatment 1x/Week Duration of treatment (weeks) 2 Plan of Care Start Date 11/30/23 Plan of Care End Date 05/02/24 Discharge Physical Therapy Discharge Comments The pt ended therapy early due to financial concerns and other health issues. She could benefit from further physical therapy to improve core stability/stabilty and reduce abdominal pain probably associated to her Diastasis Rectus. Thank you for your referral.
== END 2024-05-06 14:50 | disposition home or self-care (01) ==
LOC: PHYS 13:45
PROVIDERS: Family Provider Physician Assistant; PCP Physician Assistant; Referring Provider Nurse Practitioner; Visit Provider Nurse Practitioner
DX: M79.18 Myalgia, other site (principal); N81.89 Other female genital prolapse; M25.569 Pain in unspecified knee; M62.81 Muscle weakness (generalized); K59.00 Constipation, unspecified
CPT/HCPCS: 97110; 97112; 97140; 97162; 97530; 97535